=== PATIENT | male | born 1930 | race Caucasian/White ===

== ENCOUNTER 2021-05-12 10:33 | Inpatient (IN) ==
[2021-05-12] MEDS ORDERED: LOSARTAN POTASSIUM 50 MG TAB PO ONE (11:10)
--- NOTE | 2021-05-12 11:43 | XRay Report ---
SINGLE VIEW CHEST CLINICAL HISTORY: Generalized weakness. FINDINGS: An AP, portable, upright chest radiograph is compared to study dated 08/31/2015. A 2-lead c ardiac pacemaker is unchanged in position. The patient is status post midline sternotomy. The heart i s enlarged noting atherosclerotic calcification of the thoracic aorta. The pulmonary vasculature is n oncongested. Chronic interstitial thickening is similar to previous. Atelectasis is noted at the lung bases. No airspace consolidation or large pleural effusion is identified. No pneumothorax is seen. T he bony thorax is grossly intact. A right shoulder arthroplasty is in place. IMPRESSION: 1. Cardiomegaly and cardiac pacemaker. There is no radiographic evidence of congestive failure. 2. No airspace consolidation or pleural effusion is identified. ACT 112: Negative or not required by law. Electronically signed by: Devin Meier M.D. 05/12/2021 11:42 AM
[2021-05-12 11:55] LABS: Appearance Urine Clear (Clear); Bacteria Urine Automated Negative (Negative); Bilirubin Urine Negative (Negative); Blood Urine Negative (Negative); Color Urine Dark Yellow; Glucose Urine UA Negative (Negative); Ketones Urine Trace (Negative); Leukocyte Esterase Urine 2+ (Negative); Nitrite Urine Negative (Negative); Protein Urine Trace (Negative); RBC Urine Automated 0-4 /hpf (0-4); Specific Gravity Urine 1.018 (1.000-1.030); Urobilinogen Urine Negative (Negative)
--- NOTE | 2021-05-12 12:01 | CT Scan Report ---
CT head/brain wo con CLINICAL HISTORY: Acute change in mental status COMPARISON STUDY: No previous studies for comparison. TECHNIQUE: Axial CT of the brain is performed from the vertex to the skull base. IV contrast was not administered for this examination. A dose lowering technique was utilized adhering to the principles of ALARA. CT DOSE: 614.27 mGy.cm FINDINGS: No intra or extra-axial mass lesions are visualized. There is no CT evidence of acute cortical infarc tion. There is no evidence of midline shift. There is no acute hemorrhage. No calvarial fractures ar e visualized. There are patchy white matter hypodensities likely on a small vessel basis. There is no evidence of pathologic ventricular dilatation. No air-fluid levels are visualized. There is maxillary ethmoid sinus mucosal thickening. IMPRESSION: No acute intracranial findings ACT 112: Negative or not required by law. Electronically signed by: Hermann Paige M.D. 05/12/2021 12:00 PM
[2021-05-12 12:02] LABS: Basophils # (auto) 0.06 K/uL (0-0.2); Basophils % (auto) 1.2 %; Eosinophils # (auto) 0.18 K/uL (0-0.5); Eosinophils % (auto) 3.7 %; Hematocrit (blood only) 53.8 % (42-52); Hemoglobin 18.3 g/dL (14.0-18.0); Immature Granulocytes # (auto) 0.02 K/uL (0.00-0.02); Immature Granulocytes % (auto) 0.4 %; Lymphocytes % (auto) 32.5 %; Mean Corpuscular Volume 94.2 fL (80-100); Mean Platelet Volume 10.2 fL (7.4-10.4); Monocytes # (auto) 0.35 K/uL (0.11-0.59); Monocytes % (auto) 7.1 %; Neutrophils # (auto) 2.72 K/uL (1.4-6.5); Neutrophils % (auto) 55.1 %; Platelet Count 234 K/uL (130-400); RDW Coefficient of Variation 13.5 % (11.5-14.5); RDW Standard Deviation 46.5 fL (36.4-46.3); Red Blood Count 5.71 M/uL (4.7-6.1); White Blood Count 4.93 K/uL (4.8-10.8)
[2021-05-12 12:16] LABS: INR 1.1 (0.9-1.1); Partial Thromboplastin Time 26.5 Seconds (21.0-31.0); Prothrombin Time 10.8 Seconds (9.0-12.0)
[2021-05-12 12:20] LABS: Alanine Aminotransferase 36 U/L (12-78); Albumin Level 3.9 gm/dl (3.4-5.0); Aspartate Aminotransferase 24 U/L (15-37); BUN Creatinine Ratio 11.9 (10-20); Blood Urea Nitrogen 11 mg/dl (7-18); Calcium 9.4 mg/dl (8.5-10.1); Carbon Dioxide 30 mmol/L (21-32); Chloride 106 mmol/L (98-107); Creatinine Clr Calc Pharmacy 46.6 ml/min; Est GFR (African American) 87.5 ml/min; Est GFR (Non-African American) 75.5 ml/min; Glucose 93 mg/dl (70-99); Potassium 4.3 mmol/L (3.5-5.1); Sodium 140 mmol/L (136-145)
--- NOTE | 2021-05-12 12:22 | Emergency Department Note ---
Impression & Plan Dementia, Noncompliance with medication regimen, Alcohol use, Oppositional defiant disorder ED Provider Note NAME: SHIRLEY RDZ AGE: 89 SEX: M : 1930 ARRIVES VIA: Law Enforcement Transport INFORMANT: Patient, the police ED PROVIDER(S): Rk Slaughter DO CHIEF COMPLAINT: Mental health HPI: The patient is an 89-year-old male who presented to the emergency department with the police for a 302 evaluation. The patient apparently has had problems with his mental status which was waxing and waning. He does have a history of dementia. At this time the patient denies having any complaints and is quite angry that he is in the emergency department. He denies having any recent trauma. He denies having any head injury. The patient has not been compliant with his medications. He does have some degree of paranoia but he does not admit to this. The patient himself denies having any recent illnesses. He has no fevers or chills. He denies having any dysuria or frequency. He said no headaches. He is not been seen by his primary care physician recently. ROS: See above HPI for pertinent positives & negatives. A total of 10 systems reviewed and were otherwise negative. PAST MEDICAL HISTORY: See Below PAST SURGICAL HISTORY: See Below FAMILY HISTORY: See Below SOCIAL HISTORY: See Below HOME MEDICATIONS: See Below ALLERGIES: See Below VITALS: See Below PHYSICAL EXAMINATION: GENERAL: The patient is awake and alert. The patient is somewhat anxious appearing. EYES: The conjunctivae are clear. The pupils are round and reactive. EARS, NOSE, MOUTH AND THROAT: The nose is without any evidence of any deformity. NECK: The neck is nontender and supple. RESPIRATORY: Normal respiratory effort is noted there is no evidence of wheezing rhonchi or rales CARDIOVASCULAR: Regular rate and rhythm noted there no murmurs rubs or gallops normal S1 normal S2. GASTROINTESTINAL: The abdomen is soft. Abdomen is nontender. MUSCULOSKELETAL/EXTREMITIES: There is no evidence of gross deformity full range of motion is noted in the hips and shoulders. SKIN: There is no obvious evidence of any rash. There are no petechiae, pallor or cyanosis noted. NEUROLOGIC: Patient is awake and alert. He is oriented to person place and situation. He is able to ambulate without difficulty. PSYCH: The patient makes good eye contact for the majority of the conversation. He does have some degree of paranoia. He denies any suicidal homicidal ideation. He admits to having an argument with his significant other. MEDICAL DECISION MAKING: The patient is an 89-year-old male who presented to the emergency department for mental health evaluation. The patient has a history of alcohol use. He also has some dementia symptoms. The patient has been noncompliant with his outpatient medication regimen. He has been very paranoid about using his outpatient medications. He is also not been seeing his primary care physician. The patient was having arguments with his significant other. Apparently the argument became very bad and the patient had the police called on him. The patient was made a 302 and was brought to the emergency department for a mental health evaluation. At this time the patient is awake and alert. He does have some insight into his condition and admits that he does not want to take his medications but appears to be very paranoid about this. The patient was medically cleared in the emergency department. He was given his outpatient hypertensive medication and his blood pressure did improve. The mental health wrapper caser was involved with the patient's care. They interviewed the police. Multiple phone calls were made to area agency on aging and attempts were made to place the patient in a personal nursing home. Ultimately I did not uphold the 302 as I do not feel the patient's condition is best managed in a mental health facility at this time. Triage Nursing notes reviewed. Prior medical records reviewed Vital Signs: reviewed and remarkable for elevated blood pressure. Differential diagnosis: Mood disorder, infection, hypoglycemia, electrolyte abnormalities, cardiac sources, intracerebral event, toxicologic, trauma, neurologic, as well as other pathologies. ER treatment provided: See below Diagnostics interpreted by me: ECG: EKG was obtained in the emergency department. My interpretation is v entricular paced rhythm at 71 bpm. There were no [place] beats appreciated. Peak T waves were noted. This was compared to a tracing from August [id number]. No significant changes were noted. Laboratory studies: As stated above and show below. Imaging studies: See below Consultation(s): 1814: I discussed this case with Janett who is on-call for the [facility] hospitalist group. They have agreed to evaluate the patient in the emergency department for further management and disposition. Past Med/Surg History Medical History CAD (coronary artery disease) CHB (complete heart block) HTN (hypertension) Hyperlipidemia Iron deficiency anemia BASIM (obstructive sleep apnea) Pacemaker SSS (sick sinus syndrome) Surgical History H/O colonoscopy H/O hemorrhoidectomy History of esophagogastroduodenoscopy (EGD) Family History Mother No problems noted. Social History Smoking Status: Never smoker Hx Alcohol Use: Yes Alcohol type: other Hx Substance Use: No Preferred Language: Finnish Beliefs That Will Affect Care: None Current Living Situation: Spouse Feels Safe at Home: Yes Assistive Devices: None Allergies Allergies Allergy/AdvReac Type Severity Reaction Status Date / Time MORRIS Inhibitors AdvReac Unknown COUGH Verified 05/12/21 13:51 Home Meds Home Medications Medication Instructions Recorded Confirmed APIXABAN (ELIQUIS) 5 mg PO BID #0 08/31/15 05/12/21 ASPIRIN (ASPIR-81) 1 tab PO QAM 90 Days #90 tab 08/31/15 05/12/21 CLOTRIMAZOLE W/ BETAMETHASONE 1 dose TOPICAL PRN #0 08/31/15 05/12/21 (CLOTRIMAZOLE/BETAMETHASON) FERROUS GLUCONATE 324 mg PO QAM #0 08/31/15 05/12/21 Multivitamin 1 tab PO QAM #0 tab 08/31/15 05/12/21 acetaminophen 500 mg PO Q6H PRN 09/06/20 05/12/21 betamethasone, augmented 1 applic TOPICAL BID 09/06/20 05/12/21 [Diprolene (augmented)] polyethylene glycol 3350 17 g DAILY PRN 09/06/20 05/12/21 Lipitor 40 mg PO DAILY 05/12/21 05/12/21 losartan-hydrochlorothiazide 100 mg PO DAILY 05/12/21 05/12/21 metformin 500 mg PO DAILY 05/12/21 05/12/21 Results & Data (ED) Vital Signs Vital Signs - 24 hr 05/12/21 10:42 05/12/21 12:37 Temperature 37.1 C Temperature Source Oral Pulse Rate 83 Pulse Rate [Right Finger] 83 65 Pulse Rhythm [Right Finger] Regular Pulse Strength [Right Finger] Normal Respiratory Rate 20 18 Respiratory Effort / Characteristics Non-Labored Spontaneous Non-Labored Spontaneous Respiratory Depth Normal Normal Respiratory Pattern Regular Blood Pressure 193/112 H Blood Pressure [Right Arm] 193/112 H 150/76 H Blood Pressure Mean 139 Blood Pressure Mean [Right Arm] 139 100 Blood Pressure Position [Right Arm] Lying Pulse Oximetry 95 94 Oxygen Delivery Method Room Air Room Air Sepsis Recent Fever Within 48 Hours No Sepsis New/Unexplained Change in Mental Status No Sepsis Action Taken by Nursing No Action Required Home Medications Current Medication List: was personally reviewed by me Laboratory Data Attestation: I reviewed the patient's lab results. Result diagrams: 05/12/21 11:43 05/12/21 11:43 Lab Results 05/12/21 05/12/21 05/12/21 Range/Units 11:20 11:20 11:37 WBC (4.8-10.8) K/uL RBC (4.7-6.1) M/uL Hgb (14.0-18.0) g/dL Hct (42-52) % MCV (80-100) fL MCH (25-34) pg MCHC (32-36) g/dL RDW Std Deviation (36.4-46.3) fL RDW Coeff of Pola (11.5-14.5) % Plt Count (130-400) K/uL MPV (7.4-10.4) fL Immature Gran % (Auto) % Neut % (Auto) % Lymph % (Auto) % Payne % (Auto) % Eos % (Auto) % Baso % (Auto) % Neut # (Auto) (1.4-6.5) K/uL Lymph # (Auto) (1.2-3.4) K/uL Payne # (Auto) (0.11-0.59) K/uL Eos # (Auto) (0-0.5) K/uL Baso # (Auto) (0-0.2) K/uL Immature Gran # (Auto) (0.00-0.02) K/uL PT (9.0-12.0) Seconds INR (0.9-1.1) APTT (21.0-31.0) Seconds PTT Ratio Sodium (136-145) mmol/L Potassium (3.5-5.1) mmol/L Chloride (98-107) mmol/L Carbon Dioxide (21-32) mmol/L Anion Gap (3-11) BUN (7-18) mg/dl Creatinine (0.6-1.4) mg/dl Est Cr Clr Drug Dosing ml/min Est GFR ( Amer) ml/min Est GFR (Non-Af Amer) ml/min BUN/Creatinine Ratio (10-20) Glucose (70-99) mg/dl Calcium (8.5-10.1) mg/dl Magnesium (1.8-2.4) mg/dl Total Bilirubin (0.2-1) mg/dl AST (15-37) U/L ALT (12-78) U/L Alkaline Phosphatase (45-117) U/L Total Creatine Kinase (39-308) U/L Troponin I (0-0.045) ng/ml Total Protein (6.4-8.2) gm/dl Albumin (3.4-5.0) gm/dl Globulin (2.5-4.0) gm/dl Albumin/Globulin Ratio (0.9-2) TSH (0.300-4.500) uIu/ml Urine Color Dark Yellow Urine Appearance Clear (Clear) Urine pH 5.0 (4.5-7.5) Ur Specific Glenn 1.018 (1.000-1.030) Urine Protein Trace H (Negative) Urine Glucose (UA) Negative (Negative) Urine Ketones Trace H (Negative) Urine Blood Negative (Negative) Urine Nitrite Negative (Negative) Urine Bilirubin Negative (Negative) Urine Urobilinogen Negative (Negative) Ur Leukocyte Esterase 2+ H (Negative) Urine WBC (Auto) 5-10 H (0-5) /hpf Urine RBC (Auto) 0-4 (0-4) /hpf U Hyaline Cast (Auto) 5-10 H (0-5) /lpf U Epithel Cells (Auto) 10-20 H (0-5) /lpf Urine Bacteria (Auto) Negative (Negative) Salicylates (2.8-20) mg/dl Urine Opiates Screen Neg (Neg) Ur Methadone, Qual Neg (Neg) Acetaminophen (10-30) ug/ml Urine Barbiturates Neg (Neg) Ur Phencyclidine (PCP) Neg (Neg) U Amphetamin/Meth Scrn Neg (Neg) MDMA (Ecstasy) Screen Neg (Neg) U Benzodiazepines Scrn Neg (Neg) Ur Cocaine Metabolite Neg (Neg) U Marijuana (THC) Screen Neg (Neg) Ethyl Alcohol mg/dL (0-3) mg/dl COVID-19 Eval Order Covid19 at [facility] SARS-CoV-2 (PCR) (Negative) 05/12/21 05/12/21 05/12/21 Range/Units 11:37 11:43 11:43 WBC 4.93 (4.8-10.8) K/uL RBC 5.71 (4.7-6.1) M/uL Hgb 18.3 H (14.0-18.0) g/dL Hct 53.8 H (42-52) % MCV 94.2 (80-100) fL MCH 32.0 (25-34) pg MCHC 34.0 (32-36) g/dL RDW Std Deviation 46.5 H (36.4-46.3) fL RDW Coeff of Pola 13.5 (11.5-14.5) % Plt Count 234 (130-400) K/uL MPV 10.2 (7.4-10.4) fL Immature Gran % (Auto) 0.4 % Neut % (Auto) 55.1 % Lymph % (Auto) 32.5 % Payne % (Auto) 7.1 % Eos % (Auto) 3.7 % Baso % (Auto) 1.2 % Neut # (Auto) 2.72 (1.4-6.5) K/uL Lymph # (Auto) 1.60 (1.2-3.4) K/uL Payne # (Auto) 0.35 (0.11-0.59) K/uL Eos # (Auto) 0.18 (0-0.5) K/uL Baso # (Auto) 0.06 (0-0.2) K/uL Immature Gran # (Auto) 0.02 (0.00-0.02) K/uL PT 10.8 (9.0-12.0) Seconds INR 1.1 (0.9-1.1) APTT 26.5 (21.0-31.0) Seconds PTT Ratio 1.0 Sodium (136-145) mmol/L Potassium (3.5-5.1) mmol/L Chloride (98-107) mmol/L Carbon Dioxide (21-32) mmol/L Anion Gap (3-11) BUN (7-18) mg/dl Creatinine (0.6-1.4) mg/dl Est Cr Clr Drug Dosing ml/min Est GFR ( Amer) ml/min Est GFR (Non-Af Amer) ml/min BUN/Creatinine Ratio (10-20) Glucose (70-99) mg/dl Calcium (8.5-10.1) mg/dl Magnesium (1.8-2.4) mg/dl Total Bilirubin (0.2-1) mg/dl AST (15-37) U/L ALT (12-78) U/L Alkaline Phosphatase (45-117) U/L Total Creatine Kinase (39-308) U/L Troponin I (0-0.045) ng/ml Total Protein (6.4-8.2) gm/dl Albumin (3.4-5.0) gm/dl Globulin (2.5-4.0) gm/dl Albumin/Globulin Ratio (0.9-2) TSH (0.300-4.500) uIu/ml Urine Color Urine Appearance (Clear) Urine pH (4.5-7.5) Ur Specific Glenn (1.000-1.030) Urine Protein (Negative) Urine Glucose (UA) (Negative) Urine Ketones (Negative) Urine Blood (Negative) Urine Nitrite (Negative) Urine Bilirubin (Negative) Urine Urobilinogen (Negative) Ur Leukocyte Esterase (Negative) Urine WBC (Auto) (0-5) /hpf Urine RBC (Auto) (0-4) /hpf U Hyaline Cast (Auto) (0-5) /lpf U Epithel Cells (Auto) (0-5) /lpf Urine Bacteria (Auto) (Negative) Salicylates (2.8-20) mg/dl Urine Opiates Screen (Neg) Ur Methadone, Qual (Neg) Acetaminophen (10-30) ug/ml Urine Barbiturates (Neg) Ur Phencyclidine (PCP) (Neg) U Amphetamin/Meth Scrn (Neg) MDMA (Ecstasy) Screen (Neg) U Benzodiazepines Scrn (Neg) Ur Cocaine Metabolite (Neg) U Marijuana (THC) Screen (Neg) Ethyl Alcohol mg/dL (0-3) mg/dl COVID-19 Eval Order SARS-CoV-2 (PCR) NEGATIVE (Negative) 05/12/21 05/12/21 05/12/21 Range/Units 11:43 11:43 11:43 WBC (4.8-10.8) K/uL RBC (4.7-6.1) M/uL Hgb (14.0-18.0) g/dL Hct (42-52) % MCV (80-100) fL MCH (25-34) pg MCHC (32-36) g/dL RDW Std Deviation (36.4-46.3) fL RDW Coeff of Pola (11.5-14.5) % Plt Count (130-400) K/uL MPV (7.4-10.4) fL Immature Gran % (Auto) % Neut % (Auto) % Lymph % (Auto) % Payne % (Auto) % Eos % (Auto) % Baso % (Auto) % Neut # (Auto) (1.4-6.5) K/uL Lymph # (Auto) (1.2-3.4) K/uL Payne # (Auto) (0.11-0.59) K/uL Eos # (Auto) (0-0.5) K/uL Baso # (Auto) (0-0.2) K/uL Immature Gran # (Auto) (0.00-0.02) K/uL PT (9.0-12.0) Seconds INR (0.9-1.1) APTT (21.0-31.0) Seconds PTT Ratio Sodium 140 (136-145) mmol/L Potassium 4.3 (3.5-5.1) mmol/L Chloride 106 (98-107) mmol/L Carbon Dioxide 30 (21-32) mmol/L Anion Gap 4.0 (3-11) BUN 11 (7-18) mg/dl Creatinine 0.90 (0.6-1.4) mg/dl Est Cr Clr Drug Dosing 46.6 ml/min Est GFR ( Amer) 87.5 ml/min Est GFR (Non-Af Amer) 75.5 ml/min BUN/Creatinine Ratio 11.9 (10-20) Glucose 93 (70-99) mg/dl Calcium 9.4 (8.5-10.1) mg/dl Magnesium 1.6 L (1.8-2.4) mg/dl Total Bilirubin 0.8 (0.2-1) mg/dl AST 24 (15-37) U/L ALT 36 (12-78) U/L Alkaline Phosphatase 53 (45-117) U/L Total Creatine Kinase 38 L (39-308) U/L Troponin I < 0.015 (0-0.045) ng/ml Total Protein 7.3 (6.4-8.2) gm/dl Albumin 3.9 (3.4-5.0) gm/dl Globulin 3.4 (2.5-4.0) gm/dl Albumin/Globulin Ratio 1.1 (0.9-2) TSH 1.600 (0.300-4.500) uIu/ml Urine Color Urine Appearance (Clear) Urine pH (4.5-7.5) Ur Specific Glenn (1.000-1.030) Urine Protein (Negative) Urine Glucose (UA) (Negative) Urine Ketones (Negative) Urine Blood (Negative) Urine Nitrite (Negative) Urine Bilirubin (Negative) Urine Urobilinogen (Negative) Ur Leukocyte Esterase (Negative) Urine WBC (Auto) (0-5) /hpf Urine RBC (Auto) (0-4) /hpf U Hyaline Cast (Auto) (0-5) /lpf U Epithel Cells (Auto) (0-5) /lpf Urine Bacteria (Auto) (Negative) Salicylates < 1.7 L (2.8-20) mg/dl Urine Opiates Screen (Neg) Ur Methadone, Qual (Neg) Acetaminophen < 2 L (10-30) ug/ml Urine Barbiturates (Neg) Ur Phencyclidine (PCP) (Neg) U Amphetamin/Meth Scrn (Neg) MDMA (Ecstasy) Screen (Neg) U Benzodiazepines Scrn (Neg) Ur Cocaine Metabolite (Neg) U Marijuana (THC) Screen (Neg) Ethyl Alcohol mg/dL < 3.0 (0-3) mg/dl COVID-19 Eval Order SARS-CoV-2 (PCR) (Negative) Administered Medications Discontinued Medications Losartan Potassium (Losartan Potassium 50 Mg Tab) 50 mg PO ONE ONE Stop: 05/12/21 11:11 Last Admin: 05/12/21 11:39 Dose: 50 mg Documented by: [id number] Imaging Data Radiologist's Impression: Chest X-Ray 05/12/21 11:09 SINGLE VIEW CHEST CLINICAL HISTORY: Generalized weakness. FINDINGS: An AP, portable, upright chest radiograph is compared to study dated 08/31/2015. A 2-lead cardiac pacemaker is unchanged in position. The patient is status post midline sternotomy. The heart is enlarged noting atherosclerotic calcification of the thoracic aorta. The pulmonary vasculature is noncongested. Chronic interstitial thickening is similar to previous. Atelectasis is noted at the lung bases. No airspace consolidation or large pleural effusion is identified. No pneumothorax is seen. The bony thorax is grossly intact. A right shoulder arthroplasty is in place. IMPRESSION: 1. Cardiomegaly and cardiac pacemaker. There is no radiographic evidence of congestive failure. 2. No airspace consolidation or pleural effusion is identified. ACT 112: Negative or not required by law. Electronically signed by: Devin Meier M.D. 05/12/2021 11:[address] 05/12/21 11:09 CT head/brain wo con CLINICAL HISTORY: Acute change in mental status COMPARISON STUDY: No previous studies for comparison. TECHNIQUE: Axial CT of the brain is performed from the vertex to the skull base. IV contrast was not administered for this examination. A dose lowering technique was utilized adhering to the principles of ALARA. CT DOSE: 614.27 mGy.cm FINDINGS: No intra or extra-axial mass lesions are visualized. There is no CT evidence of acute cortical infarction. There is no evidence of midline shift. There is no acute hemorrhage. No calvarial fractures are visualized. There are patchy white matter hypodensities likely on a small vessel basis. There is no evidence of pathologic ventricular dilatation. No air-fluid levels are visualized. There is maxillary ethmoid sinus mucosal thickening. IMPRESSION: No acute intracranial findings ACT 112: Negative or not required by law. Electronically signed by: Hermann Paige M.D. 05/12/2021 12:00 PM Discharge Plan Visit Data Chief Complaint: Mental Health Evaluation Stated Complaint: [facility] ED Provider: Rk Slaughter Discharge Problem: Dementia, Noncompliance with medication regimen, Alcohol use, Oppositional defiant disorder Forms Stand Alone Forms: Replaced By [facility], Suicide Prevention Resources Prescriptions Prescriptions: No Action APIXABAN (ELIQUIS) 5 MG tablet 5 mg PO BID Qty: 0 RF: 0 ASPIRIN (ASPIR-81) 81 MG tablet 1 tab PO QAM 90 Days Qty: 90 RF: 3 CLOTRIMAZOLE W/ BETAMETHASONE (CLOTRIMAZOLE/BETAMETHASON) 1 LOT LOT 1 dose Topical PRN Qty: 0 RF: 0 FERROUS GLUCONATE 324 MG tablet 324 mg PO QAM Qty: 0 RF: 0 Multivitamin tablet 1 tab PO QAM Qty: 0 RF: 0 polyethylene glycol 3350 17 gram Powder In Packet 17 g DAILY PRN (Reason: Constipation) RF: 0 acetaminophen 500 mg Tablet 500 mg PO Q6H PRN (Reason: Pain) RF: 0 betamethasone, augmented [Diprolene (augmented)] 0.05 % Ointment 1 applic TOPICAL BID RF: 0 Lipitor 1 tab capsule 40 mg PO DAILY RF: 0 metformin 2 tablets tablet 500 mg PO DAILY RF: 0 losartan-hydrochlorothiazide 1 tab tablet 100 mg PO DAILY RF: 0 Referrals Referrals: PCP,NO [Primary Care Provider] - Discharge Problem: Dementia Qualifiers: Dementia type: unspecified type Dementia behavioral disturbance: with behavioral disturbance Qualified Code(s): 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
[2021-05-12 12:30] LABS: Amphetamines+Metham, Urine Neg (Neg); Barbiturates, Urine Neg (Neg); Benzodiazepine, Urine Neg (Neg); Cocaine, Urine Neg (Neg); MDMA (Ecstacy), Urine Neg (Neg); Methadone, Urine Neg (Neg); Opiate, Urine Neg (Neg); Phencyclidine, Urine Neg (Neg)
[2021-05-12 12:31] LABS: Albumin Globulin Ratio 1.1 (0.9-2); Alkaline Phosphatase 53 U/L (45-117); Bilirubin,Total 0.8 mg/dl (0.2-1); Creatine Kinase 38 U/L (39-308); Globulin 3.4 gm/dl (2.5-4.0); Magnesium 1.6 mg/dl (1.8-2.4); Total Protein 7.3 gm/dl (6.4-8.2); Troponin I < 0.015 ng/ml (0-0.045)
[2021-05-12 12:38] LABS: Acetaminophen < 2 ug/ml (10-30); Salicylate < 1.7 mg/dl (2.8-20)
--- NOTE | 2021-05-12 17:34 | Electrocardiogram Report ---
Test Reason : Blood Pressure : / mmHG Vent. Rate : 071 BPM Atrial Rate : 136 BPM P-R Int : 000 ms QRS Dur : 164 ms QT Int : 448 ms P-R-T Axes : 000 268 077 degrees QTc Int : 486 ms Ventricular-paced rhythm Underlying atrial fibrillation Abnormal ECG When compared with ECG of 31-AUG-2015 12:13, Vent. rate has increased BY 4 BPM Confirmed by Dejan Moran ([id number]) on 05/12/2021 5:34:21 PM Referred By: Confirmed By:Dejan Moran
[2021-05-12] MEDS ORDERED: POLYETHYLENE (MIRALAX) 17 GM PACK PO PRN ×2 (21:23)
[2021-05-12] MEDS ORDERED: LORazepam 2 MG/4 ML VIAL IV PRN (21:23)
[2021-05-12] MEDS ORDERED: OLANZapine 10 MG/2.1 ML SDV IM PRN (21:23)
[2021-05-12] MEDS ORDERED: LORazepam 3 MG/6 ML VIAL IV PRN (21:23)
[2021-05-12] MEDS ORDERED: HEPARIN SOD 5,000 UNIT/0.5 ML VIAL SQ SCH (21:23)
[2021-05-12] MEDS ORDERED: NITROGLYCERIN SL 0.4 MG/TAB TAB SL PRN (21:23)
[2021-05-12] MEDS ORDERED: ATIVAN IV ALCOHOL WITHDRAWL IV PRN (21:23)
[2021-05-12] MEDS ORDERED: ONDANSETRON INJ 2 MG/ML 2 ML VIAL IV PRN (21:23)
[2021-05-12] MEDS ORDERED: LORazepam 1 MG/2 ML VIAL IV PRN (21:23)
[2021-05-12] MEDS ORDERED: GABAPENTIN 1200MG ALCOHOL WITHDRAWAL LOAD PO STA (21:23)
[2021-05-12] MEDS ORDERED: cloNIDine HCL 0.1 MG TAB PO PRN (21:23)
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
[2021-05-12] MEDS ORDERED: CLOTRIMAZOLE/BETAMETHASONE CR 15 GM TUBE EXT PRN (21:45)
[2021-05-12] MEDS: INSULIN ASPART 100 UNITS/ML 3 ML PEN SC SCH (21:56)
[2021-05-12] MEDS ORDERED: CARBOHYDRATES FOR HYPOGLYCEMIA PO PRN (22:00)
[2021-05-12] MEDS ORDERED: DEXTROSE 50% 50 ML SYRINGE IV PRN (22:00)
[2021-05-12] MEDS ORDERED: GLUCAGON FOR INJ 1 MG VIAL IM PRN (22:00)
[2021-05-12] MEDS ORDERED: GABAPENTIN 600 MG TAB PO ONE (22:00)
[2021-05-12] MEDS ORDERED: GLUCOSE 40% GEL 15 GM TUBE PO PRN (22:00)
[2021-05-12] MEDS ORDERED: GLUCOSE 10 TABS/TUBE PO PRN (22:00)
[2021-05-12] MEDS: THIAMINE HCL 100 MG in SYRINGE 9 ML IV SCH (22:38)
[2021-05-12] MEDS: FOLIC ACID 1 MG in SYRINGE 9.8 ML IV SCH (22:39)
[2021-05-12] MEDS: APIXABAN 5 MG TABLET PO SCH (22:39)
--- NOTE | 2021-05-12 22:58 | Hospitalist Progress Note ---
Date of Service May 12, 2021 Assessment & Plan Admission and Anticipated Discharge Date Admission Date: May 12, 2021 Subjective possible uti. follow cultures Results & Data Results & Data ([facility]) Vital Signs (Past 12 Hours) Vital Signs Temp Pulse Resp BP BP Pulse Ox Pulse Ox 05/12/21 22:15 36.5 C 65 16 177/108 H 96 05/12/21 21:23 36.5 C 68 16 177/108 H 96 96 05/12/21 20:07 37 C 85 14 167/102 H 93 05/12/21 12:37 65 18 150/76 H 94
[2021-05-13 06:00] LABS: Basophils # (auto) 0.03 K/uL (0-0.2); Basophils % (auto) 0.5 %; Eosinophils # (auto) 0.32 K/uL (0-0.5); Eosinophils % (auto) 5.3 %; Hematocrit (blood only) 48.9 % (42-52); Hemoglobin 17.1 g/dL (14.0-18.0); Immature Granulocytes # (auto) 0.03 K/uL (0.00-0.02); Immature Granulocytes % (auto) 0.5 %; Lymphocytes # (auto) 2.32 K/uL (1.2-3.4); Lymphocytes % (auto) 38.5 %; Mean Corpuscular Hemoglobin 32.6 pg (25-34); Mean Corpuscular Volume 93.1 fL (80-100); Mean Platelet Volume 10.1 fL (7.4-10.4); Monocytes # (auto) 0.55 K/uL (0.11-0.59); Monocytes % (auto) 9.1 %; Neutrophils # (auto) 2.77 K/uL (1.4-6.5); Neutrophils % (auto) 46.1 %; Platelet Count 190 K/uL (130-400); RDW Coefficient of Variation 13.5 % (11.5-14.5); RDW Standard Deviation 46.1 fL (36.4-46.3); Red Blood Count 5.25 M/uL (4.7-6.1); White Blood Count 6.02 K/uL (4.8-10.8)
[2021-05-13] MEDS: GABAPENTIN 600 MG TAB PO SCH ×3 (06:11→20:39)
[2021-05-13 06:20] LABS: Estimated Average Glucose 120 mg/dl; Hemoglobin A1C 5.8 % (4.5-5.6)
[2021-05-13 06:44] LABS: BUN Creatinine Ratio 21.6 (10-20); Calcium 8.9 mg/dl (8.5-10.1); Creatinine Clr Calc Pharmacy 55.8 ml/min; Est GFR (African American) 91.3 ml/min; Est GFR (Non-African American) 78.8 ml/min; Magnesium 1.8 mg/dl (1.8-2.4); Potassium 3.3 mmol/L (3.5-5.1)
[2021-05-13] MEDS: THIAMINE HCL 100 MG in SYRINGE 9 ML IV SCH (08:44)
[2021-05-13] MEDS: MULTIVITAMIN TAB PO SCH (08:44)
[2021-05-13] MEDS: APIXABAN 5 MG TABLET PO SCH ×2 (08:44→20:39)
[2021-05-13] MEDS: ATORVASTATIN 40 MG TAB PO SCH (08:44)
[2021-05-13] MEDS: ASPIRIN 81 MG ECTAB PO SCH (08:44)
[2021-05-13] MEDS: FOLIC ACID 1 MG in SYRINGE 9.8 ML IV SCH (08:44)
[2021-05-13] MEDS: LOSARTAN/HCTZ 50/12.5MG TAB PO SCH (08:45)
[2021-05-13] MEDS: INSULIN ASPART 100 UNITS/ML 3 ML PEN SC SCH ×4 (09:00→21:54)
[2021-05-13] MEDS ORDERED: POTASSIUM CHLORIDE PWD 20 MEQ PACK PO ONE (11:52)
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
[2021-05-14] MEDS: GABAPENTIN 600 MG TAB PO SCH ×3 (05:35→23:34)
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
[2021-05-14] MEDS: THIAMINE HCL 100 MG TAB PO SCH (09:41)
[2021-05-14] MEDS: ISOSORBIDE MONO EXTENDED REL 30 MG TABCR PO SCH (09:41)
[2021-05-14] MEDS: FOLIC ACID 1 MG TAB PO SCH (09:41)
[2021-05-14] MEDS: APIXABAN 5 MG TABLET PO SCH ×2 (09:41→22:15)
[2021-05-14] MEDS: MULTIVITAMIN TAB PO SCH (09:42)
[2021-05-14] MEDS: ASPIRIN 81 MG ECTAB PO SCH (10:39)
[2021-05-14] MEDS: INSULIN ASPART 100 UNITS/ML 3 ML PEN SC SCH (10:39)
[2021-05-14] MEDS: ATORVASTATIN 40 MG TAB PO SCH (10:39)
[2021-05-14] MEDS: FOLIC ACID 1 MG in SYRINGE 9.8 ML IV SCH (10:40)
[2021-05-14] MEDS: LOSARTAN/HCTZ 50/12.5MG TAB PO SCH (10:40)
[2021-05-14] MEDS: THIAMINE HCL 100 MG in SYRINGE 9 ML IV SCH (10:40)
--- NOTE | 2021-05-14 15:49 | Hospitalist Progress Note ---
Date of Service May 14, 2021 Assessment & Plan (1) Alcohol use: Patient was not intoxicated on arrival to the ER, he is a self-described alcoholic. Reports avoiding alcohol for the last couple of weeks. At the age of 89, unsure how helpful rehabilitation will be at this point, however this is an option. For now, there are no withdrawal symptoms but will continue to monitor. (2) Dementia: Alert and oriented, memory is intact from the events of last night and overall. He appears to be very functional. Not on medication at this time. Was recently prescribed mirtazapine 7.5 nightly in April 2021 by his PCP, questionable if he has started this. 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 He has a history of arteriosclerotic dementia. Medication regimen includes aspirin at this time. Patient was notably taken off of atenolol, losartan, HCTZ back in January when he reported noncompliance with this. His PCP is aware of noncompliance. Patient has no chest pain and appears stable at this time. (4) Chronic atrial fibrillation: Recently seen by PCP. Strongly advised to stay on meds including anticoagulant. Currently taking aspirin, Eliquis. Not on other rate or rhythm control medications. (5) Noncompliance with medication regimen: Reports recent noncompliance with medications. (6) Hypertension: Patient has stopped losartan HCTZ earlier this year and is on diet control only. Continue low-salt diet. (7) DVT prophylaxis: Apixaban Full code Disposition -considering placement into [facility]. For now awaiting a receiving facility for this elderly man with dementia. Sylvia Regalado DO [facility] Hospitalist Admission and Anticipated Discharge Date Admission Date: May 12, 2021 Subjective 89 yo M with alcoholism and dementia presented to the ER after an argument with his . He cannot return home as she has a restraining order on him. He wants to go to his trailer in [place]. He is not agitated or withdrawing. He is oriented and doing well overall. Review of Systems Review of Systems: All systems reviewed & are unremarkable except as noted in Subjective Physical Exam Physical Exam: CONSTITUTIONAL: WNWD, vitals as above, generally well- appearing EYES: normal conjunctivae, no scleral icterus ENT: external ear and nose normal, MMM RESPIRATORY: clear to auscultation bilaterally, no crackles, rales or wheezes, normal respiratory effort CARDIOVASCULAR: regular rate and rhythm, S1 and 2 heard without murmurs, arnold ps or rubs, no JVD, no peripheral edema GASTROINTESTINAL: soft, nontender, nondistended MUSCULOSKELETAL: strength 5/5 throughout, head is normocephalic and atraumatic SKIN: warm and dry NEUROLOGIC: CN 2-12 grossly intact, no sensory deficit, normal cognition, normal speech, no tremor, no gross focal deficits. PSYCHIATRIC: alert cooperative and oriented to person, place and time. Results & Data Results & Data ([facility]) Vital Signs (Past 12 Hours) Vital Signs Temp Pulse Pulse Resp BP BP Pulse Ox 05/14/21 09:39 59 L 125/77 05/14/21 07:46 36.5 C 62 20 136/90 95 05/14/21 07:00 60 05/14/21 04:00 36.6 C 68 20 143/90 H 95 Medications Administered Current Inpatient Medications Acetaminophen (Acetaminophen 325 Mg Tab) 650 mg PO Q4H PRN PRN Reason: Pain or Fever Stop: 06/11/21 21:22 Apixaban (Apixaban 5 Mg Tablet) 5 mg PO BID [facility] Stop: 06/11/21 21:59 Last Admin: 05/14/21 09:41 Dose: 5 mg Documented by: Betamethasone/Clotrimazole (Clotrimazole/Betamethasone Cr 15 Gm Tube) 1 appln EXT PRN PRN PRN Reason: PRN Stop: 06/11/21 21:44 Folic Acid (Folic Acid 1 Mg Tab) 1 mg PO QAM [facility] Stop: 06/13/21 09:29 Last Admin: 05/14/21 09:41 Dose: 1 mg Documented by: Gabapentin (Gabapentin 600 Mg Tab) 600 mg PO Q12H [facility] Stop: 05/15/21 12:01 Gabapentin (Gabapentin 600 Mg Tab) 600 mg PO Q24H [facility] Stop: 05/16/21 12:01 Lorazepam (Ativan) 1 mg in 2 mls @ 2 mls/min IV UD PRN; Protocol PRN Reason: EtOH Withdrawl AWSS Score 6,7 Stop: 06/11/21 21:22 Lorazepam (Ativan) 2 mg in 4 mls @ 4 mls/min IV UD PRN; Protocol PRN Reason: EtOH Withdrawl AWSS Score 8,9 Stop: 06/11/21 21:22 Lorazepam (Ativan) 3 mg in 6 mls @ 4 mls/min IV ONCE PRN; Protocol PRN Reason: EtOH Withdrawl AWSS Score >=10 Stop: 06/11/21 21:22 Isosorbide Mononitrate (Isosorbide [place] Extended Rel 30 Mg Tabcr) [facility] [place] Stop: 06/13/21 09:29 Last Admin: 05/14/21 09:41 Dose: 30 mg Documented by: Multivitamins (Multivitamin Tab) 1 tab [facility] [place] Stop: 06/12/21 08:59 Last Admin: 05/14/21 09:42 Dose: 1 tab Documented by: Nitroglycerin (Nitroglycerin Sl 0.4 Mg/Tab Tab) 0.4 mg SL UD PRN PRN Reason: Chest Pain Stop: 06/11/21 21:22 Olanzapine (Olanzapine 10 Mg/2.1 Ml Sdv) 2.5 mg IM Q4H PRN PRN Reason: Agitation Stop: 06/11/21 21:22 Ondansetron HCl (Ondansetron Inj 2 Mg/Ml 2 Ml Vial) 4 mg IV Q6H PRN PRN Reason: Nausea Stop: 06/11/21 21:22 Polyethylene Glycol (Polyethylene (Miralax) 17 Gm Pack) 17 gm PO DAILY PRN PRN Reason: Constipation Stop: 06/11/21 21:22 Thiamine HCl (Thiamine Hcl 100 Mg Tab) 100 [facility] [place] Stop: 06/13/21 09:29 Last Admin: 05/14/21 09:41 Dose: 100 mg Documented by: (1) Dementia Dementia behavioral disturbance: with behavioral disturbance Dementia type: unspecified type Qualified Code(s): F03.91 - Unspecified dementia with behavio ral disturbance
[2021-05-15] MEDS: MULTIVITAMIN TAB PO SCH (08:04)
[2021-05-15] MEDS: FOLIC ACID 1 MG TAB PO SCH (08:04)
[2021-05-15] MEDS: ISOSORBIDE MONO EXTENDED REL 30 MG TABCR PO SCH (08:04)
[2021-05-15] MEDS: APIXABAN 5 MG TABLET PO SCH ×2 (08:04→22:22)
[2021-05-15] MEDS: THIAMINE HCL 100 MG TAB PO SCH (08:04)
[2021-05-15 10:52] LABS: BUN Creatinine Ratio 13.6 (10-20); Calcium 8.9 mg/dl (8.5-10.1); Creatinine Clr Calc Pharmacy 42.2 ml/min; Est GFR (Non-African American) 61.2 ml/min
[2021-05-15] MEDS: GABAPENTIN 600 MG TAB PO SCH (12:50)
--- NOTE | 2021-05-15 18:07 | Hospitalist Progress Note ---
Date of Service May 15, 2021 Assessment & Plan (1) Alcohol use: Patient was not intoxicated on arrival to the ER, he is a self-described alcoholic. Reports avoiding alcohol for the last couple of weeks. At the age of 89, unsure how helpful rehabilitation will be at this point, however this is an option. For now, there are no withdrawal symptoms but will continue to monitor. (2) Dementia: Alert and oriented, memory is intact from the events of last night and overall. He appears to be very functional. Not on medication at this time. Was recently prescribed mirtazapine 7.5 nightly in April 2021 by his PCP, questionable if he has started this. 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 He has a history of arteriosclerotic dementia. Medication regimen includes aspirin at this time. Patient was notably taken off of atenolol, losartan, HCTZ back in January when he reported noncompliance with this. His PCP is aware of noncompliance. Patient has no chest pain and appears stable at this time. (4) Chronic atrial fibrillation: Recently seen by PCP. Strongly advised to stay on meds including anticoagulant. Currently taking aspirin, Eliquis. Not on other rate or rhythm control medications. (5) Noncompliance with medication regimen: Reports recent noncompliance with medications. (6) Hypertension: Patient has stopped losartan HCTZ earlier this year and is on diet control only. Continue low-salt diet. (7) DVT prophylaxis: Apixaban Full code Disposition -considering placement into [facility]. For now awaiting a receiving facility for this elderly man with dementia. Sylvia Regalado DO [facility] Hospitalist Admission and Anticipated Discharge Date Admission Date: May 12, 2021 Subjective 89 yo M with alcoholism and dementia presented to the ER after an argument with his . He cannot return home as she has a restraining order on him. He feels well overall denying any symptoms at this time. Review of Systems Review of Systems: All systems reviewed & are unremarkable except as noted in Subjective Physical Exam Physical Exam: CONSTITUTIONAL: WNWD, vitals as above, generally well- appearing EYES: normal conjunctivae, no scleral icterus ENT: external ear and nose normal, MMM RESPIRATORY: clear to auscultation bilaterally, no crackles, rales or wheezes, normal respiratory effort CARDIOVASCULAR: regular rate and rhythm, S1 and 2 heard without murmurs, gallops or rubs, no JVD, no peripheral edema GASTROINTESTINAL: soft, nontender, nondistended MUSCULOSKELETAL: strength 5/5 throughout, head is normocephalic and atraumatic SKIN: warm and dry NEUROLOGIC: CN 2-12 grossly intact, no sensory deficit, normal cognition, normal speech, no tremor, no gross focal deficits. PSYCHIATRIC: alert cooperative and oriented to person, place and time. Results & Data Results & Data ([facility]) Vital Signs (Past 12 Hours) Vital Signs Temp Pulse Pulse Resp BP BP Pulse Ox 05/15/21 16:00 36.5 C 72 18 134/79 96 05/15/21 13:05 36.5 C 63 16 116/65 95 05/15/21 07:18 36.5 C 59 L 18 125/84 92 Laboratory Results [facility] 05/15/21 10:05 Sodium 142 Potassium 4.0 Chloride 106 Carbon Dioxide 30 BUN 15 Creatinine 1.07 Glucose 86 Calcium 8.9 Medications Administered Current Inpatient Medications Acetaminophen (Acetaminophen 325 Mg Tab) 650 mg PO Q4H PRN PRN Reason: Pain or Fever Stop: 06/11/21 21:22 Apixaban (Apixaban 5 Mg Tablet) 5 mg PO BID [facility] Stop: 06/11/21 21:59 Last Admin: 05/15/21 08:04 Dose: 5 mg Documented by: Betamethasone/Clotrimazole (Clotrimazole/Betamethasone Cr 15 Gm Tube) 1 appln EXT PRN PRN PRN Reason: PRN Stop: 06/11/21 21:44 Folic Acid (Folic Acid 1 Mg Tab) 1 mg PO QAM [facility] Stop: 06/13/21 09:29 Last Admin: 05/15/21 08:04 Dose: 1 mg Documented by: Gabapentin (Gabapentin 600 Mg Tab) 600 mg PO Q24H [facility] Stop: 05/16/21 12:01 Lorazepam (Ativan) 1 mg in 2 mls @ 2 mls/min IV UD PRN; Protocol PRN Reason: EtOH Withdrawl AWSS Score 6,7 Stop: 06/11/21 21:22 Lorazepam (Ativan) 2 mg in 4 mls @ 4 mls/min IV UD PRN; Protocol PRN Reason: EtOH Withdrawl AWSS Score 8,9 Stop: 06/11/21 21:22 Lorazepam (Ativan) 3 mg in 6 mls @ 4 mls/min IV ONCE PRN; Protocol PRN Reason: EtOH Withdrawl AWSS Score >=10 Stop: 06/11/21 21:22 Isosorbide Mononitrate (Isosorbide [place] Extended Rel 30 Mg Tabcr) 30 mg PO [facility] Stop: 06/13/21 09:29 Last Admin: 05/15/21 08:04 Dose: 30 mg Documented by: Multivitamins (Multivitamin Tab) 1 tab PO [facility] Stop: 06/12/21 08:59 Last Admin: 05/15/21 08:04 Dose: 1 tab Documented by: Nitroglycerin (Nitroglycerin Sl 0.4 Mg/Tab Tab) 0.4 mg SL UD PRN PRN Reason: Chest Pain Stop: 06/11/21 21:22 Olanzapine (Olanzapine 10 Mg/2.1 Ml Sdv) 2.5 mg IM Q4H PRN PRN Reason: Agitation Stop: 06/11/21 21:22 Ondansetron HCl (Ondansetron Inj 2 Mg/Ml 2 Ml Vial) 4 mg IV Q6H PRN PRN Reason: Nausea Stop: 06/11/21 21:22 Polyethylene Glycol (Polyethylene (Miralax) 17 Gm Pack) 17 gm PO DAILY PRN PRN Reason: Constipation Stop: 06/11/21 21:22 Thiamine HCl (Thiamine Hcl 100 Mg Tab) 100 mg PO [facility] Stop: 06/13/21 09:29 Last Admin: 05/15/21 08:04 Dose: 100 mg Documented by: (1) Dementia Dementia behavioral disturbance: with behavioral disturbance Dementia type: unspecified type Qualified Code(s): 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
[2021-05-16] MEDS: ISOSORBIDE MONO EXTENDED REL 30 MG TABCR PO SCH (09:05)
[2021-05-16] MEDS: APIXABAN 5 MG TABLET PO SCH ×2 (09:06→19:54)
[2021-05-16] MEDS: FOLIC ACID 1 MG TAB PO SCH (09:06)
[2021-05-16] MEDS: THIAMINE HCL 100 MG TAB PO SCH (09:06)
[2021-05-16] MEDS: MULTIVITAMIN TAB PO SCH (09:06)
[2021-05-16] MEDS ORDERED: GABAPENTIN 600 MG TAB PO SCH (12:00)
--- NOTE | 2021-05-16 14:13 | Hospitalist Progress Note ---
Date of Service May 16, 2021 Assessment & Plan (1) Dementia: Was brought into ER following an argument with the at home and initially thought to have 302 admission 302 petition was dropped as the patient improved subsequently Appreciate psychiatric input and recommendation Alert and oriented, memory is intact from the events of last night and overall. He appears to be very functional. Not on medication at this time. Was recently prescribed mirtazapine 7.5 nightly in April 2021 by his PCP, questionable if he has started this. will not start Mirtazapine as Psychiatrist did not recommended any meds He remains otherwise stable (2) Noncompliance with medication regimen: Reports recent noncompliance with medications. (3) Alcohol use: Patient was not intoxicated on arrival to the ER, he is a self-described alcoholic. Reports avoiding alcohol for the last couple of weeks. At the age of 89, unsure how helpful rehabilitation will be at this point, however this is an option. For now, there are no withdrawal symptoms but will continue to monitor. 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 He has a history of arteriosclerotic dementia. Medication regimen includes aspirin at this time. Patient was notably taken off of atenolol, losartan, HCTZ back in January when he reported noncompliance with this. His PCP is aware of noncompliance. Patient has no chest pain and appears stable at this time. (5) Chronic atrial fibrillation: Recently seen by PCP. Strongly advised to stay on meds including anticoagulant. Currently taking aspirin, Eliquis. Not on other rate or rhythm control medications. (6) Hypertension: Patient has stopped losartan HCTZ earlier this year and is on diet control only. Continue low-salt diet. Will start Amlodipine 2.5 Mg daily (7) DVT prophylaxis: Apixaban Full code Disposition -considering placement into [facility]. For now awaiting a receiving facility for this elderly man with dementia. Admission and Anticipated Discharge Date Admission Date: May 12, 2021 Subjective 05/16/2021 The patient was seen and examined in medical floor He was admitted following an argument with his at home but the 302 criteria has been dropped He denies any symptoms as of today and has been feeling a lot better He has been waiting to be placed Review of Systems Review of Systems: All systems reviewed and are unremarkable except as noted below Neurologic: + generalized weakness Physical Exam Physical Exam: Sitting on a chair without any acute distress Constitutional: well developed and well nourished; not ill appearing Eyes: PERRL, conjunctivae normal, anicteric sclerae ENMT: external ear and nose normal, oropharynx normal Neck: trachea midline, no thyromegaly Respiratory: no respiratory distress Auscultation: lungs clear to ausc ultation bilaterally Cardiovascular: Rate/Rhythm: regular rate and regular rhythm Heart Sounds: no murmur Extremities: no edema Gastrointestinal (Abdomen): Inspection/Auscultation: normal bowel sounds; abdomen not distended Percussion/Palpation: abdomen soft; abdomen nontender Musculoskeletal: No acute arthritis in any joint Neurologic: Alert, awake and oriented x3. Generally weak but no focal sensory or motor deficit appreciated Psychiatric: A+Ox3, euthymic affect Lymphatic: no cervical or axillary lymphadenopathy Results & Data Results & Data ([facility]) Vital Signs (Past 12 Hours) Vital Signs Temp Pulse Resp BP Pulse Ox 05/16/21 07:30 36.4 C L 75 20 169/98 H 95 Medications Administered Current Inpatient Medications Acetaminophen (Acetaminophen 325 Mg Tab) 650 mg PO Q4H PRN PRN Reason: Pain or Fever Stop: 06/11/21 21:22 Apixaban (Apixaban 5 Mg Tablet) 5 mg PO BID [facility] Stop: 06/11/21 21:59 Last Admin: 05/16/21 09:06 Dose: 5 mg Documented by: Betamethasone/Clotrimazole (Clotrimazole/Betamethasone Cr 15 Gm Tube) 1 appln EXT PRN PRN PRN Reason: PRN Stop: 06/11/21 21:44 Folic Acid (Folic Acid 1 Mg Tab) 1 mg PO QAM [facility] Stop: 06/13/21 09:29 Last Admin: 05/16/21 09:06 Dose: 1 mg Documented by: Lorazepam (Ativan) 1 mg in 2 mls @ 2 mls/min IV UD PRN; Protocol PRN Reason: EtOH Withdrawl AWSS Score 6,7 Stop: 06/11/21 21:22 Lorazepam (Ativan) 2 mg in 4 mls @ 4 mls/min IV UD PRN; Protocol PRN Reason: EtOH Withdrawl AWSS Score 8,9 Stop: 06/11/21 21:22 Lorazepam (Ativan) 3 mg in 6 mls @ 4 mls/min IV ONCE PRN; Protocol PRN Reason: EtOH Withdrawl AWSS Score >=10 Stop: 06/11/21 21:22 Isosorbide Mononitrate (Isosorbide [place] Extended Rel 30 Mg Tabcr) 30 mg PO [facility] Stop: 06/13/21 09:29 Last Admin: 05/16/21 09:05 Dose: 30 mg Documented by: Multivitamins (Multivitamin Tab) 1 tab PO [facility] Stop: 06/12/21 08:59 Last Admin: 05/16/21 09:06 Dose: 1 tab Documented by: Nitroglycerin (Nitroglycerin Sl 0.4 Mg/Tab Tab) 0.4 mg SL UD PRN PRN Reason: Chest Pain Stop: 06/11/21 21:22 Olanzapine (Olanzapine 10 Mg/2.1 Ml Sdv) 2.5 mg IM Q4H PRN PRN Reason: Agitation Stop: 06/11/21 21:22 Ondansetron HCl (Ondansetron Inj 2 Mg/Ml 2 Ml Vial) 4 mg IV Q6H PRN PRN Reason: Nausea Stop: 06/11/21 21:22 Polyethylene Glycol (Polyethylene (Miralax) 17 Gm Pack) 17 gm PO DAILY PRN PRN Reason: Constipation Stop: 06/11/21 21:22 Thiamine HCl (Thiamine Hcl 100 Mg Tab) 100 mg PO [facility] Stop: 06/13/21 09:29 Last Admin: 05/16/21 09:06 Dose: 100 mg Documented by: (1) Dementia Dementia behavioral disturbance: with behavioral disturbance Dementia type: unspecified type Qualified Code(s): 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
[2021-05-16] MEDS: amLODIPine BESYLATE 5 MG TAB PO SCH (15:08)
[2021-05-17] MEDS: amLODIPine BESYLATE 5 MG TAB PO SCH (08:05)
[2021-05-17] MEDS: APIXABAN 5 MG TABLET PO SCH ×2 (08:05→20:02)
[2021-05-17] MEDS: MULTIVITAMIN TAB PO SCH (08:06)
[2021-05-17] MEDS: ISOSORBIDE MONO EXTENDED REL 30 MG TABCR PO SCH (08:06)
[2021-05-17] MEDS: THIAMINE HCL 100 MG TAB PO SCH (08:06)
[2021-05-17] MEDS: FOLIC ACID 1 MG TAB PO SCH (08:07)
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
--- NOTE | 2021-05-17 16:50 | Hospitalist Progress Note ---
Date of Service May 17, 2021 Assessment & Plan (1) Dementia: Was brought into ER following an argument with the at home and initially thought to have 302 admission 302 petition was dropped as the patient improved subsequently Appreciate psychiatric input and recommendation Alert and oriented, memory is intact from the events of last night and overall. He appears to be very functional. Not on medication at this time. Was recently prescribed mirtazapine 7.5 nightly in April 2021 by his PCP, questionable if he has started this. will not start Mirtazapine as Psychiatrist did not recommended any meds Remains stable without any acute delirium Awaiting to be placed (2) Noncompliance with medication regimen: Reports recent noncompliance with medications. (3) Alcohol use: Patient was not intoxicated on arrival to the ER, he is a self-described alcoholic. Reports avoiding alcohol for the last couple of weeks. At the age of 89, unsure how helpful rehabilitation will be at this point, [facility] this is an option. For now, there are no withdrawal symptoms but will continue to monitor. 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 Medication regimen includes aspirin at this time. Patient was notably taken off of atenolol, losartan, HCTZ back in January when he reported noncompliance with this. His PCP is aware of noncompliance. Patient has no chest pain and appears stable at this time. (5) Chronic atrial fibrillation: Recently seen by PCP. Strongly advised to stay on meds including anticoagulant. Currently taking aspirin, Eliquis. Not on other rate or rhythm control medications. No acute cardiac symptoms (6) Hypertension: Patient has stopped losartan HCTZ earlier this year and is on diet control only. Continue low-salt diet. Will start Amlodipine 2.5 Mg daily (7) DVT prophylaxis: Apixaban Full code Disposition -considering placement into [facility]. For now awaiting a receiving facility for this elderly man with dementia. Admission and Anticipated Discharge Date Admission Date: May 12, 2021 Subjective 05/16/2021 The patient was seen and examined in medical floor He was admitted following an argument with his at home but the 302 criteria has been dropped He denies any symptoms as of today and has been feeling a lot better He has been waiting to be placed 05/17/2021 The patient was seen and examined in medical floor He has been much better today He discussed in detail what happened to him before coming to the hospital He seemed quite rational in his thought and behavior Review of Systems Review of Systems: All systems reviewed and are unremarkable except as noted below Neurologic: + generalized weakness Physical Exam Physical Exam: Sitting on a chair without any acute distress Constitutional: well developed and well nourished; not ill appearing Eyes: PERRL, conjunctivae normal, anicteric sclerae ENMT: external ear and nose normal, oropharynx normal Neck: trachea midline, no thyromegaly Respiratory: no respiratory distress Auscultation: lungs clear to auscultation bilaterally Cardiovascular: Rate/Rhythm: regular rate and regular rhythm Heart Sounds: no murmur Extremities: no edema Gastrointestinal (Abdomen): Inspection/Auscultation: normal bowel sounds; abdomen not distended Percussion/Palpation: abdomen soft; abdomen nontender Musculoskeletal: No acute arthritis in any joint Psychiatric: A+Ox3, euthymic affect Lymphatic: no cervical or axillary lymphadenopathy Results & Data Results & Data ([facility]) Vital Signs (Past 12 Hours) Vital Signs Temp Pulse Resp BP BP Pulse Ox 05/17/21 16:00 36.4 C L 60 20 131/78 96 05/17/21 07:30 36.8 C 61 18 149/81 H 98 Medications Administered Current Inpatient Medications Acetaminophen (Acetaminophen 325 Mg Tab) 650 mg PO Q4H PRN PRN Reason: Pain or Fever Stop: 06/11/21 21:22 Amlodipine Besylate (Amlodipine Besylate 5 Mg Tab) 2.5 mg PO QAM [facility] Stop: 06/15/21 14:29 Last Admin: 05/17/21 08:05 Dose: 2.5 mg Documented by: Apixaban (Apixaban 5 Mg Tablet) 5 mg PO BID [facility] Stop: 06/11/21 21:59 Last Admin: 05/17/21 08:05 Dose: 5 mg Documented by: Betamethasone/Clotrimazole (Clotrimazole/Betamethasone Cr 15 Gm Tube) 1 appln EXT PRN PRN PRN Reason: PRN Stop: 06/11/21 21:44 Folic Acid (Folic Acid 1 Mg Tab) 1 mg PO QAM [facility] Stop: 06/13/21 09:29 Last Admin: 05/17/21 08:07 Dose: 1 mg Documented by: Lorazepam (Ativan) 1 mg in 2 mls @ 2 mls/min IV UD PRN; Protocol PRN Reason: EtOH Withdrawl AWSS Score 6,7 Stop: 06/11/21 21:22 Lorazepam (Ativan) 2 mg in 4 mls @ 4 mls/min IV UD PRN; Protocol PRN Reason: EtOH Withdrawl AWSS Score 8,9 Stop: 06/11/21 21:22 Lorazepam (Ativan) 3 mg in 6 mls @ 4 mls/min IV ONCE PRN; Protocol PRN Reason: EtOH Withdrawl AWSS Score >=10 Stop: 06/11/21 21:22 Isosorbide Mononitrate (Isosorbide [place] Extended Rel 30 Mg Tabcr) 30 mg PO [facility] Stop: 06/13/21 09:29 Last Admin: 05/17/21 08:06 Dose: 30 mg Documented by: Multivitamins (Multivitamin Tab) 1 tab PO [facility] Stop: 06/12/21 08:59 Last Admin: 05/17/21 08:06 Dose: 1 tab Documented by: Nitroglycerin (Nitroglycerin Sl 0.4 Mg/Tab Tab) 0.4 mg SL UD PRN PRN Reason: Chest Pain Stop: 06/11/21 21:22 Olanzapine (Olanzapine 10 Mg/2.1 Ml Sdv) 2.5 mg IM Q4H PRN PRN Reason: Agitation Stop: 06/11/21 21:22 Ondansetron HCl (Ondansetron Inj 2 Mg/Ml 2 Ml Vial) 4 mg IV Q6H PRN PRN Reason: Nausea Stop: 06/11/21 21:22 Polyethylene Glycol (Polyethylene (Miralax) 17 Gm Pack) 17 gm PO DAILY PRN PRN Reason: Constipation Stop: 06/11/21 21:22 Thiamine HCl (Thiamine Hcl 100 Mg Tab) 100 mg PO [facility] Stop: 06/13/21 09:29 Last Admin: 05/17/21 08:06 Dose: 100 mg Documented by: (1) Dementia Dementia behavioral disturbance: with behavioral disturbance Dementia type: unspecified type Qualified Code(s): 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
[2021-05-17] MEDS: ACETAMINOPHEN 325 MG TAB PO PRN (19:49)
[2021-05-18] MEDS: THIAMINE HCL 100 MG TAB PO SCH (07:25)
[2021-05-18] MEDS: amLODIPine BESYLATE 5 MG TAB PO SCH (07:25)
[2021-05-18] MEDS: ISOSORBIDE MONO EXTENDED REL 30 MG TABCR PO SCH (07:25)
[2021-05-18] MEDS: MULTIVITAMIN TAB PO SCH (07:26)
[2021-05-18] MEDS: APIXABAN 5 MG TABLET PO SCH ×2 (07:26→20:15)
[2021-05-18] MEDS: FOLIC ACID 1 MG TAB PO SCH (07:26)
--- NOTE | 2021-05-18 14:45 | Hospitalist Progress Note ---
Date of Service May 18, 2021 Assessment & Plan (1) Dementia: Was brought into ER following an argument with the at home and initially thought to have 302 admission 302 petition was dropped as the patient improved subsequently Appreciate psychiatric input and recommendation Alert and oriented, memory is intact from the events of last night and overall. He appears to be very functional. Not on medication at this time. Was recently prescribed mirtazapine 7.5 nightly in April 2021 by his PCP, questionable if he has started this. will not start Mirtazapine as Psychiatrist did not recommended any meds Remains stable without any acute delirium Awaiting to be placed (2) Noncompliance with medication regimen: Reports recent noncompliance with medications. (3) Alcohol use: Patient was not intoxicated on arrival to the ER, he is a self-described alcoholic. Reports avoiding alcohol for the last couple of weeks. At the age of 89, unsure how helpful rehabilitation will be at this point, [facility] this is an option. For now, there are no withdrawal symptoms but will continue to monitor. 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 Medication regimen includes aspirin at this time. Patient was notably taken off of atenolol, losartan, HCTZ back in January when he reported noncompliance with this. His PCP is aware of noncompliance. Patient has no chest pain and appears stable at this time. (5) Chronic atrial fibrillation: Recently seen by PCP. Strongly advised to stay on meds including anticoagulant. Currently taking aspirin, Eliquis. Not on other rate or rhythm control medications. No acute cardiac symptoms (6) Hypertension: Patient has stopped losartan HCTZ earlier this year and is on diet control only. Continue low-salt diet. Will start Amlodipine 2.5 Mg daily (7) DVT prophylaxis: Apixaban Full code Disposition -[facility]ing [facility]. For now awaiting a receiving facility for this elderly man with dementia. Admission and Anticipated Discharge Date Admission Date: May 12, 2021 Subjective 05/16/2021 The patient was seen and examined in medical floor He was admitted following an argument with his at home but the 302 criteria has been dropped He denies any symptoms as of today and has been feeling a lot better He has been waiting to be placed 05/17/2021 The patient was seen and examined in medical floor He has been much better today He discussed in detail what happened to him before coming to the hospital He seemed quite rational in his thought and behavior 05/18/2021 The patient was seen and examined in medical floor Even before restarting conversation with him he mentioned that he has dementia and is not a good day for him to talk The exam section is from 05/17/2021 Review of Systems Review of Systems: All systems reviewed and are unremarkable except as noted below Neurologic: + generalized weakness Physical Exam Physical Exam: Sitting on a chair without any acute distress Constitutional: well developed and well nourished; not ill appearing Eyes: PERRL, conjunctivae normal, anicteric sclerae ENMT: external ear and nose normal, oropharynx normal Neck: trachea midline, no thyromegaly Respiratory: no respiratory distress Auscultation: lungs clear to auscultation bilaterally Cardiovascular: Rate/Rhythm: regular rate and regular rhythm Heart Sounds: no murmur Extremities: no edema Gastrointestinal (Abdomen): Inspection/Auscultation: normal bowel sounds; abdomen not distended Percussion/Palpation: abdomen soft; abdomen nontender Psychiatric: A+Ox3, euthymic affect Lymphatic: no cervical or axillary lymphadenopathy Results & Data Results & Data (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
[2021-05-18] MEDS: ACETAMINOPHEN 325 MG TAB PO PRN (21:07)
[2021-05-19] MEDS: THIAMINE HCL 100 MG TAB PO SCH (07:59)
[2021-05-19] MEDS: ISOSORBIDE MONO EXTENDED REL 30 MG TABCR PO SCH (07:59)
[2021-05-19] MEDS: MULTIVITAMIN TAB PO SCH (08:00)
[2021-05-19] MEDS: APIXABAN 5 MG TABLET PO SCH ×2 (08:00→20:48)
[2021-05-19] MEDS: amLODIPine BESYLATE 5 MG TAB PO SCH (08:00)
[2021-05-19] MEDS: FOLIC ACID 1 MG TAB PO SCH (08:00)
--- NOTE | 2021-05-19 14:54 | Communication Note ---
Date of Service: May 19, 2021 Patient continues without significant psychiatric symptoms. No psychiatric treatment warranted or given at this time. Psychiatric consult team signing off, please reconsult if necessary.
--- NOTE | 2021-05-19 17:03 | Hospitalist Progress Note ---
Date of Service May 19, 2021 Assessment & Plan (1) Dementia: Was brought into ER following an argument with the at home and initially thought to have 302 admission 302 petition was dropped as the patient improved subsequently Appreciate psychiatric input and recommendation Alert and oriented, memory is intact from the events of last night and overall. He appears to be very functional. Not on medication at this time. Was recently prescribed mirtazapine 7.5 nightly in April 2021 by his PCP, questionable if he has started this. will not start Mirtazapine as Psychiatrist did not recommended any meds Remains stable without any acute delirium Awaiting to be placed Will be transferred out of the hospital on Saturday (2) Noncompliance with medication regimen: Reports recent noncompliance with medications. Has been taking his medications regularly (3) Alcohol use: Patient was not intoxicated on arrival to the ER, he is a self-described alcoholic. Reports avoiding alcohol for the last couple of weeks. At the age of 89, unsure how helpful rehabilitation will be at this point, however this is an option. For now, there are no withdrawal symptoms but will continue to monitor. 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 Medication regimen includes aspirin at this time. Patient was notably taken off of atenolol, losartan, HCTZ back in January when he reported noncompliance with this. His PCP is aware of noncompliance. Patient has no chest pain and appears stable at this time. Remains stable without any symptoms (5) Chronic atrial fibrillation: Recently seen by PCP. Strongly advised to stay on meds including anticoagulant. Currently taking aspirin, Eliquis. Not on other rate or rhythm control medications. No acute cardiac symptoms (6) Hypertension: Patient has stopped losartan HCTZ earlier this year and is on diet control only. Continue low-salt diet. Will start Amlodipine 2.5 Mg daily (7) DVT prophylaxis: Apixaban Full code Disposition -considering placement into [facility]. For now awaiting a receiving facility for this elderly man with dementia. Admission and Anticipated Discharge Date Admission Date: May 12, 2021 Subjective 05/16/2021 The patient was seen and examined in medical floor He was admitted following an argument with his at home but the 302 criteria has been dropped He denies any symptoms as of today and has been feeling a lot better He has been waiting to be placed 05/17/2021 The patient was seen and examined in medical floor He has been much better today He discussed in detail what happened to him before coming to the hospital He seemed quite rational in his thought and behavior 05/18/2021 The patient was seen and examined in medical floor Even before restarting conversation with him he mentioned that he has dementia and is not a good day for him to talk The exam section is from 05/17/2021 05/19/2021 The patient was seen and examined in medical floor He has been stable today He has been talking rationally today and has had a good conversation with me Review of Systems Review of Systems: All systems reviewed and are unremarkable except as noted below Neurologic: + generalized weakness Physical Exam Physical Exam: Sitting on a chair without any acute distress Constitutional: well developed and well nourished; not ill appearing Eyes: PERRL, conjunctivae normal, anicteric sclerae ENMT: external ear and nose normal, oropharynx normal Neck: trachea midline, no thyromegaly Respiratory: no respiratory distress Auscultation: lungs clear to auscultation bilaterally Cardiovascular: Rate/Rhythm: regular rate and regular rhythm Heart Sounds: no murmur Extremities: no edema Gastrointestinal (Abdomen): Inspection/Auscultation: normal bowel sounds; abdomen not distended Percussion/Palpation: abdomen soft; abdomen nontender Musculoskeletal: Denies any acute arthritis involving any joint Psychiatric: A+Ox3, euthymic affect Lymphatic: no cervical or axillary lymphadenopathy Results & Data Results & Data ([facility]) Vital Signs (Past 12 Hours) Vital Signs Temp Pulse Pulse Resp BP Pulse Ox 05/19/21 15:27 36.4 C L 62 20 147/82 H 94 05/19/21 07:40 36.7 C 62 16 158/88 H 97 (1) Dementia Dementia behavioral disturbance: with behavioral disturbance Dementia type: unspecified type Qualified Code(s): 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
[2021-05-20] MEDS: ACETAMINOPHEN 325 MG TAB PO PRN (00:06)
[2021-05-20] MEDS: APIXABAN 5 MG TABLET PO SCH ×2 (09:17→20:53)
[2021-05-20] MEDS: FOLIC ACID 1 MG TAB PO SCH (09:18)
[2021-05-20] MEDS: amLODIPine BESYLATE 5 MG TAB PO SCH (09:18)
[2021-05-20] MEDS: THIAMINE HCL 100 MG TAB PO SCH (09:18)
[2021-05-20] MEDS: MULTIVITAMIN TAB PO SCH (09:19)
[2021-05-20] MEDS: ISOSORBIDE MONO EXTENDED REL 30 MG TABCR PO SCH (09:19)
--- NOTE | 2021-05-20 15:22 | Hospitalist Progress Note ---
Date of Service May 20, 2021 Assessment & Plan (1) Dementia: Was brought into ER following an argument with the at home and initially thought to have 302 admission 302 petition was dropped as the patient improved subsequently Appreciate psychiatric input and recommendation Alert and oriented, memory is intact from the events of last night and overall. He appears to be very functional. Not on medication at this time. Was recently prescribed mirtazapine 7.5 nightly in April 2021 by his PCP, questionable if he has started this. will not start Mirtazapine as Psychiatrist did not recommended any meds Remains stable without any acute delirium Awaiting to be placed Will be transferred out of the hospital on Saturday Remains stable (2) Noncompliance with medication regimen: Reports recent noncompliance with medications. Has been taking his medications regularly (3) Alcohol use: Patient was not intoxicated on arrival to the ER, he is a self-described alcoholic. Reports avoiding alcohol for the last couple of weeks. At the age of 89, unsure how helpful rehabilitation will be at this point, however this is an option. For now, there are no withdrawal symptoms but will continue to monitor. 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 Medication regimen includes aspirin at this time. Patient was notably taken off of atenolol, losartan, HCTZ back in January when he reported noncompliance with this. His PCP is aware of noncompliance. Patient has no chest pain and appears stable at this time. Remains stable without any symptoms (5) Chronic atrial fibrillation: Recently seen by PCP. Strongly advised to stay on meds including anticoagulant. Currently taking aspirin, Eliquis. Not on other rate or rhythm control medications. No acute cardiac symptoms (6) Hypertension: Patient has stopped losartan HCTZ earlier this year and is on diet control only. Continue low-salt diet. Will start Amlodipine 2.5 Mg daily Blood pressure is high likely due to anxiety Continue current medications (7) DVT prophylaxis: Apixaban Full code Disposition -considering placement into [facility]. For now awaiting a receiving facility for this elderly man with dementia. Admission and Anticipated Discharge Date Admission Date: May 12, 2021 Subjective 05/16/2021 The patient was seen and examined in medical floor He was admitted following an argument with his at home but the 302 criteria has been dropped He denies any symptoms as of today and has been feeling a lot better He has been waiting to be placed 05/17/2021 The patient was seen and examined in medical floor He has been much better today He discussed in detail what happened to him before coming to the hospital He seemed quite rational in his thought and behavior 05/18/2021 The patient was seen and examined in medical floor Even before restarting conversation with him he mentioned that he has dementia and is not a good day for him to talk The exam section is from 05/17/2021 05/19/2021 The patient was seen and examined in medical floor He has been stable today He has been talking rationally today and has had a good conversation with me 05/20/2021 The patient was seen and examined in medical floor He remains stable medically and denies any symptoms He is anxious that he will need to go to a facility on Saturday Review of Systems Review of Systems: All systems reviewed and are unremarkable except as noted below Physical Exam Physical Exam: Sitting on a chair without any acute distress Constitutional: well developed and well nourished; not ill appearing Eyes: PERRL, conjunctivae normal, anicteric sclerae ENMT: external ear and nose normal, oropharynx normal Neck: trachea midline, no thyromegaly Respiratory: no respiratory distress Auscultation: lungs clear to auscu ltation bilaterally Cardiovascular: Rate/Rhythm: regular rate and regular rhythm Heart Sounds: no murmur Extremities: no edema Gastrointestinal (Abdomen): Inspection/Auscultation: normal bowel sounds; abdomen not distended Percussion/Palpation: abdomen soft; abdomen nontender Psychiatric: A+Ox3, euthymic affect Lymphatic: no cervical or axillary lymphadenopathy Results & Data Results & Data ([facility]) Vital Signs (Past 12 Hours) Vital Signs Temp Pulse Resp BP Pulse Ox 05/20/21 07:45 36.4 C L 64 20 173/101 H 95 (1) Dementia Dementia behavioral disturbance: with behavioral disturbance Dementia type: unspecified type Qualified Code(s): 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
[2021-05-20] MEDS ORDERED: LORazepam 0.5 MG TAB PO STA (23:37)
[2021-05-21 06:02] LABS: Basophils # (auto) 0.02 K/uL (0-0.2); Basophils % (auto) 0.3 %; Eosinophils # (auto) 0.15 K/uL (0-0.5); Eosinophils % (auto) 2.5 %; Hematocrit (blood only) 46.2 % (42-52); Hemoglobin 15.8 g/dL (14.0-18.0); Immature Granulocytes # (auto) 0.04 K/uL (0.00-0.02); Immature Granulocytes % (auto) 0.7 %; Lymphocytes # (auto) 1.98 K/uL (1.2-3.4); Lymphocytes % (auto) 32.4 %; Mean Corpuscular Hemoglobin 31.9 pg (25-34); Mean Corpuscular Hgb Conc 34.2 g/dL (32-36); Mean Corpuscular Volume 93.1 fL (80-100); Monocytes # (auto) 0.45 K/uL (0.11-0.59); Monocytes % (auto) 7.4 %; Neutrophils # (auto) 3.48 K/uL (1.4-6.5); Neutrophils % (auto) 56.7 %; Platelet Count 227 K/uL (130-400); RDW Coefficient of Variation 13.3 % (11.5-14.5); RDW Standard Deviation 45.1 fL (36.4-46.3); Red Blood Count 4.96 M/uL (4.7-6.1); White Blood Count 6.12 K/uL (4.8-10.8)
[2021-05-21 06:34] LABS: BUN Creatinine Ratio 21.8 (10-20); Calcium 9.1 mg/dl (8.5-10.1); Creatinine Clr Calc Pharmacy 53.2 ml/min; Est GFR (African American) 89.5 ml/min; Est GFR (Non-African American) 77.3 ml/min; Potassium 3.9 mmol/L (3.5-5.1)
[2021-05-21] MEDS: APIXABAN 5 MG TABLET PO SCH ×2 (07:45→21:07)
[2021-05-21] MEDS: FOLIC ACID 1 MG TAB PO SCH (07:45)
[2021-05-21] MEDS: ISOSORBIDE MONO EXTENDED REL 30 MG TABCR PO SCH (07:45)
[2021-05-21] MEDS: THIAMINE HCL 100 MG TAB PO SCH (07:46)
[2021-05-21] MEDS: MULTIVITAMIN TAB PO SCH (07:46)
[2021-05-21] MEDS: amLODIPine BESYLATE 5 MG TAB PO SCH (07:46)
--- NOTE | 2021-05-21 13:32 | Hospitalist Progress Note ---
Date of Service May 21, 2021 Assessment & Plan (1) Dementia: Was brought into ER following an argument with the at home and initially thought to have 302 admission 302 petition was dropped as the patient improved subsequently Appreciate psychiatric input and recommendation Alert and oriented, memory is intact from the events of last night and overall. He appears to be very functional. Not on medication at this time. Was recently prescribed mirtazapine 7.5 nightly in April 2021 by his PCP, questionable if he has started this. will not start Mirtazapine as Psychiatrist did not recommended any meds Remains stable without any acute delirium Remains stable to be transferred on Saturday (2) Noncompliance with medication regimen: Reports recent noncompliance with medications. Has been taking his medications regularly (3) Alcohol use: Patient was not intoxicated on arrival to the ER, he is a self-described alcoholic. Reports avoiding alcohol for the last couple of weeks. At the age of 89, unsure how helpful rehabilitation will be at this point, however this is an option. For now, there are no withdrawal symptoms but will continue to monitor. 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 Medication regimen includes aspirin at this time. Patient was notably taken off of atenolol, losartan, HCTZ back in January when he reported noncompliance with this. His PCP is aware of noncompliance. Patient has no chest pain and appears stable at this time. Remains stable without any symptoms (5) Chronic atrial fibrillation: Recently seen by PCP. Strongly advised to stay on meds including anticoagulant. Currently taking aspirin, Eliquis. Not on other rate or rhythm control medications. No acute cardiac symptoms (6) Hypertension: Patient has stopped losartan HCTZ earlier this year and is on diet control only. Continue low-salt diet. Will start Amlodipine 2.5 Mg daily Blood pressure is high likely due to anxiety Continue current medications Blood pressure remains stable (7) DVT prophylaxis: Apixaban Full code Disposition -considering placement into [facility]. For now awaiting a receiving facility for this elderly man with dementia. Discharge tomorrow Admission and Anticipated Discharge Date Admission Date: May 12, 2021 Subjective 05/16/2021 The patient was seen and examined in medical floor He was admitted following an argument with his at home but the 302 criteria has been dropped He denies any symptoms as of today and has been feeling a lot better He has been waiting to be placed 05/17/2021 The patient was seen and examined in medical floor He has been much better today He discussed in detail what happened to him before coming to the hospital He seemed quite rational in his thought and behavior 05/18/2021 The patient was seen and examined in medical floor Even before restarting conversation with him he mentioned that he has dementia and is not a good day for him to talk The exam section is from 05/17/2021 05/19/2021 The patient was seen and examined in medical floor He has been stable today He has been talking rationally today and has had a good conversation with me 05/20/2021 The patient was seen and examined in medical floor He remains stable medically and denies any symptoms He is anxious that he will need to go to a facility on Saturday05/21/2021 The patient was seen and examined in medical floor He has been stable and waiting to go to [facility] on Saturday Review of Systems Review of Systems: All systems reviewed and are unremarkable except as noted below Neurologic: + generalized weakness Physical Exam Physical Exam: Sitting on a chair without any acute distress Constitutional: well developed and well nourished; not ill appearing Eyes: PERRL, conjunctivae normal, anicteric sclerae ENMT: external ear and nose normal, oropharynx normal Neck: trachea midline, no thyromegaly Respiratory: no respiratory distress Auscultation: lungs clear to auscultation bilaterally Cardiovascular: Rate/Rhythm: regular rate and regular rhythm Heart Sounds: no murmur Extremities: no edema Gastrointestinal (Abdomen): Inspection/Auscultation: normal bowel sounds; abdomen not distended Percussion/Palpation: abdomen soft; abdomen nontender Musculoskeletal: Denies any arthritis involving any joint Neurologic: Alert, awake and oriented x3. Occasionally confused. No focal neuro deficit Psychiatric: A+Ox3, euthymic affect Lymphatic: no cervical or axillary lymphadenopathy Results & Data Results & Data ([facility]) Vital Signs (Past 12 Hours) Vital Signs Temp Pulse Resp BP BP Pulse Ox 05/21/21 08:50 76 159/98 H 05/21/21 07:32 36.4 C L 73 16 174/95 H 97 Laboratory Results Short CBC 05/21/21 Range/Units 05:44 WBC 6.12 (4.8-10.8) K/uL Hgb 15.8 (14.0-18.0) g/dL Hct 46.2 (42-52) % Plt Count 227 (130-400) K/uL BMP 05/21/21 05:44 Sodium 139 Potassium 3.9 Chloride 106 Carbon Dioxide 31 BUN 19 H Creatinine 0.85 Glucose 101 H Calcium 9.1 Medications Administered Current Inpatient Medications Acetaminophen (Acetaminophen 325 Mg Tab) 650 mg PO Q4H PRN PRN Reason: Pain or Fever Stop: 06/11/21 21:22 Last Admin: 05/20/21 00:06 Dose: 650 mg Documented by: Amlodipine Besylate (Amlodipine Besylate 5 Mg Tab) 2.5 mg PO [facility] Stop: 06/15/21 14:29 Last Admin: 05/21/21 07:46 Dose: 2.5 mg Documented by: Apixaban (Apixaban 5 Mg Tablet) 5 mg PO BID [facility] Stop: 06/11/21 21:59 Last Admin: 05/21/21 07:45 Dose: 5 mg Documented by: Betamethasone/Clotrimazole (Clotrimazole/Betamethasone Cr 15 Gm Tube) 1 appln EXT PRN PRN PRN Reason: PRN Stop: 06/11/21 21:44 Folic Acid (Folic Acid 1 Mg Tab) 1 mg PO [facility] Stop: 06/13/21 09:29 Last Admin: 05/21/21 07:45 Dose: 1 mg Documented by: Lorazepam (Ativan) 1 mg in 2 mls @ 2 mls/min IV UD PRN; Protocol PRN Reason: EtOH Withdrawl AWSS Score 6,7 Stop: 06/11/21 21:22 Lorazepam (Ativan) 2 mg in 4 mls @ 4 mls/min IV UD PRN; Protocol PRN Reason: EtOH Withdrawl AWSS Score 8,9 Stop: 06/11/21 21:22 Lorazepam (Ativan) 3 mg in 6 mls @ 4 mls/min IV ONCE PRN; Protocol PRN Reason: EtOH Withdrawl AWSS Score >=10 Stop: 06/11/21 21:22 Isosorbide Mononitrate (Isosorbide [place] Extended Rel 30 Mg Tabcr) 30 mg PO QAM [facility] Stop: 06/13/21 09:29 Last Admin: 05/21/21 07:45 Dose: 30 mg Documented by: Multivitamins (Multivitamin Tab) 1 tab PO QAM [facility] Stop: 06/12/21 08:59 Last Admin: 05/21/21 07:46 Dose: 1 tab Documented by: Nitroglycerin (Nitroglycerin Sl 0.4 Mg/Tab Tab) 0.4 mg SL UD PRN PRN Reason: Chest Pain Stop: 06/11/21 21:22 Olanzapine (Olanzapine 10 Mg/2.1 Ml Sdv) 2.5 mg IM Q4H PRN PRN Reason: Agitation Stop: 06/11/21 21:22 Ondansetron HCl (Ondansetron Inj 2 Mg/Ml 2 Ml Vial) 4 mg IV Q6H PRN PRN Reason: Nausea Stop: 06/11/21 21:22 Polyethylene Glycol (Polyethylene (Miralax) 17 Gm Pack) 17 gm PO DAILY PRN PRN Reason: Constipation Stop: 06/11/21 21:22 Thiamine HCl (Thiamine Hcl 100 Mg Tab) 100 mg PO QAM [facility] Stop: 06/13/21 09:29 Last Admin: 05/21/21 07:46 Dose: 100 mg Documented by: (1) Dementia Dementia behavioral disturbance: with behavioral disturbance Dementia type: unspecified type Qualified Code(s): 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
[2021-05-21] MEDS ORDERED: LORazepam 0.5 MG TAB PO STA (21:29)
[2021-05-22] MEDS: MULTIVITAMIN TAB PO SCH (08:20)
[2021-05-22] MEDS: FOLIC ACID 1 MG TAB PO SCH (08:20)
[2021-05-22] MEDS: APIXABAN 5 MG TABLET PO SCH (08:20)
[2021-05-22] MEDS: THIAMINE HCL 100 MG TAB PO SCH (08:21)
[2021-05-22] MEDS: amLODIPine BESYLATE 5 MG TAB PO SCH (08:21)
[2021-05-22] MEDS: ISOSORBIDE MONO EXTENDED REL 30 MG TABCR PO SCH (08:22)
--- NOTE | 2021-05-22 09:26 | Hospitalist Progress Note ---
Date of Service May 22, 2021 Assessment & Plan (1) Dementia: Was brought into ER following an argument with the at home and initially thought to have 302 admission 302 petition was dropped as the patient improved subsequently Appreciate psychiatric input and recommendation Alert and oriented, memory is intact from the events of last night and overall. He appears to be very functional. Not on medication at this time. Was recently prescribed mirtazapine 7.5 nightly in April 2021 by his PCP, questionable if he has started this. will not start Mirtazapine as Psychiatrist did not recommended any meds Remains stable without any acute delirium Will be transferred to [facility] this morning (2) Noncompliance with medication regimen: Reports recent noncompliance with medications. Has been taking his medications regularly (3) Alcohol use: Patient was not intoxicated on arrival to the ER, he is a self-described alcoholic. Reports avoiding alcohol for the last couple of weeks. At the age of 89, unsure how helpful rehabilitation will be at this point, however this is an option. For now, there are no withdrawal symptoms but will continue to monitor. 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 Medication regimen includes aspirin at this time. Patient was notably taken off of atenolol, losartan, HCTZ back in January when he reported noncompliance with this. His PCP is aware of noncompliance. Patient has no chest pain and appears stable at this time. Denies any acute symptoms (5) Chronic atrial fibrillation: Recently seen by PCP. Strongly advised to stay on meds including anticoagulant. Currently taking aspirin, Eliquis. Not on other rate or rhythm control medications. Heart rate is controlled (6) Hypertension: Patient has stopped losartan HCTZ earlier this year and is on diet control only. Continue low-salt diet. Will start Amlodipine 2.5 Mg daily Blood pressure is high likely due to anxiety Continue current medications Blood pressure remains stable (7) DVT prophylaxis: Apixaban Full code Disposition -considering placement into [facility]. For now awaiting a receiving facility for this elderly man with dementia. Discharged to [facility] this morning Admission and Anticipated Discharge Date Admission Date: May 12, 2021 Subjective 05/16/2021 The patient was seen and examined in medical floor He was admitted following an argument with his at home but the 302 criteria has been dropped He denies any symptoms as of today and has been feeling a lot better He has been waiting to be placed 05/17/2021 The patient was seen and examined in medical floor He has been much better today He discussed in detail what happened to him before coming to the hospital He seemed quite rational in his thought and behavior 05/18/2021 The patient was seen and examined in medical floor Even before restarting conversation with him he mentioned that he has dementia and is not a good day for him to talk The exam section is from 05/17/2021 05/19/2021 The patient was seen and examined in medical floor He has been stable today He has been talking rationally today and has had a good conversation with me 05/20/2021 The patient was seen and examined in medical floor He remains stable medically and denies any symptoms He is anxious that he will need to go to a facility on Saturday05/21/2021 The patient was seen and examined in medical floor He has been stable and waiting to go to personal-assisted on Saturday05/22/2021 The patient was seen and examined in medical floor He denies any symptoms and has been feeling much better He will be transferred to [facility] this morning Review of Systems Review of Systems: All systems reviewed and are unremarkable except as noted below Neurologic: + generalized weakness Physical Exam Physical Exam: Sitting on a chair without any acute distress Constitutional: well developed and well nourished; not ill appearing Eyes: PERRL, conjunctivae normal, anicteric sclerae ENMT: external ear and nose normal, oropharynx normal Neck: trachea midline, no thyromegaly Respiratory: no respiratory distress Auscultation: lungs clear to auscultation bilaterally Cardiovascular: Rate/Rhythm: regular rate and regular rhythm Heart Sounds: no murmur Extremities: no edema Gastrointestinal (Abdomen): Inspection/Auscultation: normal bowel sounds; abdomen not distended Percussion/Palpation: abdomen soft; abdomen nontender Musculoskeletal: No acute arthritis involving any joint Neurologic: Alert, awake and oriented. pleasantly confused. Psychiatric: A+Ox3, euthymic affect Lymphatic: no cervical or axillary lymphadenopathy Results & Data Results & Data ([facility]) Vital Signs (Past 12 Hours) Vital Signs Temp Pulse Pulse Resp BP BP Pulse Ox 05/22/21 07:34 36.3 C L 63 16 163/93 H 94 05/21/21 22:30 36.7 C 60 16 148/79 H 95 Medications Administered Current Inpatient Medications Acetaminophen (Acetaminophen 325 Mg Tab) 650 mg PO Q4H PRN PRN Reason: Pain or Fever Stop: 06/11/21 21:22 Last Admin: 05/20/21 00:06 Dose: 650 mg Documented by: Amlodipine Besylate (Amlodipine Besylate 5 Mg Tab) 2.5 mg PO [facility] Stop: 06/15/21 14:29 Last Admin: 05/22/21 08:21 Dose: 2.5 mg Documented by: Apixaban (Apixaban 5 Mg Tablet) 5 mg PO BID [facility] Stop: 06/11/21 21:59 Last Admin: 05/22/21 08:20 Dose: 5 mg Documented by: Betamethasone/Clotrimazole (Clotrimazole/Betamethasone Cr 15 Gm Tube) 1 appln EXT PRN PRN PRN Reason: PRN Stop: 06/11/21 21:44 Folic Acid (Folic Acid 1 Mg Tab) 1 mg PO [facility] Stop: 06/13/21 09:29 Last Admin: 05/22/21 08:20 Dose: 1 mg Documented by: Lorazepam (Ativan) 1 mg in 2 mls @ 2 mls/min IV UD PRN; Protocol PRN Reason: EtOH Withdrawl AWSS Score 6,7 Stop: 06/11/21 21:22 Lorazepam (Ativan) 2 mg in 4 mls @ 4 mls/min IV UD PRN; Protocol PRN Reason: EtOH Withdrawl AWSS Score 8,9 Stop: 06/11/21 21:22 Lorazepam (Ativan) 3 mg in 6 mls @ 4 mls/min IV ONCE PRN; Protocol PRN Reason: EtOH Withdrawl AWSS Score >=10 Stop: 06/11/21 21:22 Isosorbide Mononitrate (Isosorbide [place] Extended Rel 30 Mg Tabcr) 30 mg PO [facility] Stop: 06/13/21 09:29 Last Admin: 05/22/21 08:22 Dose: 30 mg Documented by: Multivitamins (Multivitamin Tab) 1 tab PO [facility] Stop: 06/12/21 08:59 Last Admin: 05/22/21 08:20 Dose: 1 tab Documented by: Nitroglycerin (Nitroglycerin Sl 0.4 Mg/Tab Tab) 0.4 mg SL UD PRN PRN Reason: Chest Pain Stop: 06/11/21 21:22 Olanzapine (Olanzapine 10 Mg/2.1 Ml Sdv) 2.5 mg IM Q4H PRN PRN Reason: Agitation Stop: 06/11/21 21:22 Ondansetron HCl (Ondansetron Inj 2 Mg/Ml 2 Ml Vial) 4 mg IV Q6H PRN PRN Reason: Nausea Stop: 06/11/21 21:22 Polyethylene Glycol (Polyethylene (Miralax) 17 Gm Pack) 17 gm PO DAILY PRN PRN Reason: Constipation Stop: 06/11/21 21:22 Thiamine HCl (Thiamine Hcl 100 Mg Tab) 100 mg PO QAM [facility] Stop: 06/13/21 09:29 Last Admin: 05/22/21 08:21 Dose: 100 mg Documented by: (1) Dementia Dementia behavioral disturbance: with behavioral disturbance Dementia type: unspecified type Qualified Code(s): 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
--- NOTE | 2021-05-22 16:57 | Discharge Summary ---
Date of Service May 22, 2021 Admission HPI Per Admitting Provider DICTATED BY: Inocente Boyd MD DATE OF ADMISSION: 05/12/2021 CHIEF COMPLAINT: Some paranoid behavior at home, noncompliant with medication, dementia, alcohol use. HISTORY OF PRESENT ILLNESS: This is an 89-year-old male with past medical history significant for diabetes, hyperlipidemia, third-degree heart block, status post pacemaker, chronic atrial fibrillation, hypertension, GERD, hard of hearing, dementia, iron-deficiency anemia, history of CABG. The patient lives at home with his . Seems to be he is having noncompliance with medications, some paranoia and his mental status was waxing and waning at home and he has a history of dementia. He is not seeing his primary care physician. He had a very bad argument with his significant other and police were called and he was 302ed and brought to the Emergency Room. In the Emergency Room, the patient is alert and awake, and after multiple phone calls to [employer] and interviewing the police, the ER physician thought he was not required 302 and it was upheld, and the plan was to send him to a personal [facility], but they could not place him, so we are called for admission. The patient is resting comfortably, very hard of hearing, I have to write on the paper. The patient denies any pain. Nothing is bothering him except that he wants to go. No nausea, no cough, no fevers, no diarrhea or constipation. Appetite is okay. No difficulty swallowing. Vision is not that great. No sore throat. Urinating okay. Walking okay with cane. He states he is drinking alcohol at home about 2 bottles, looks like 2 bourbons a day. He is saying that he is taking his meds, but there seems to be noncompliance with medication as per records. When asked apparently anything he wanted to tell me, he said he wanted me to go. When I asked to examine him, he said that I need to go and when I requested him to be examined, he just walked me to the door and let me go out. Admission Exam Per Admitting Provider The patient refused to be examined on admission Principal Diagnosis Dementia without any acute delirium, stable CAD, hypertension, controlled atrial fibrillation Discharge Exam Constitutional well developed and well nourished; not ill appearing Eyes PERRL, conjunctivae normal, anicteric sclerae ENMT external ear and nose normal, oropharynx normal Neck trachea midline, no thyromegaly Respiratory no respiratory distress Auscultation: lungs clear to auscultation bilaterally Cardiovascular Rate/Rhythm: regular rate and regular rhythm Heart Sounds: no murmur Extremities: no edema Gastrointestinal (Abdomen) Inspection/Auscultation: normal bowel sounds; abdomen not distended Percussion/Palpation: abdomen soft; abdomen nontender Psychiatric A+Ox3, euthymic affect Lymphatic no cervical or axillary lymphadenopathy Discharge Data Allergies Allergy/AdvReac Type Severity Reaction Status Date / Time MORRIS Inhibitors AdvReac Unknown COUGH Verified 05/12/21 13:51 Consultations 05/12/21 18:17 ED Decision to Admit Stat 05/12/21 21:23 Consult Psychiatry Routine Ordered Studies 05/12/21 11:09 CT head/brain wo con Stat Hospital Course (1) Dementia: Was brought into ER following an argument with the at home and [employer] thought to have 302 admission 302 petition was dropped as the patient improved subsequently Appreciate psychiatric input and recommendation Alert and oriented, memory is intact from the events of last night and overall. He appears to be very functional. Not on medication at this time. Was recently prescribed mirtazapine 7.5 nightly in April 2021 by his PCP, questionable if he has started this. will not start Mirtazapine as Psychiatrist did not recommended any meds Remains stable without any acute delirium Will be transferred to [facility] this morning (2) Noncompliance with medication regimen: Reports recent noncompliance with medications. Has been taking his medications regularly (3) Alcohol use: Patient was not intoxicated on arrival to the ER, he is a self-described alcoholic. Reports avoiding alcohol for the last couple of weeks. At the age of 89, unsure how helpful rehabilitation will be at this point, however this is an option. For now, there are no withdrawal symptoms but will continue to monitor. 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 Medication regimen includes aspirin at this time. Patient was notably taken off of atenolol, losartan, HCTZ back in January when he reported noncompliance with this. His PCP is aware of noncompliance. Patient has no chest pain and appears stable at this time. Denies any acute symptoms (5) Chronic atrial fibrillation: Recently seen by PCP. Strongly advised to stay on meds including anticoagulant. Currently taking aspirin, Eliquis. Not on other rate or rhythm control medications. Heart rate is controlled (6) Hypertension: Patient has stopped losartan HCTZ earlier this year and is on diet control only. Continue low-salt diet. Will start Amlodipine 2.5 Mg daily Blood pressure is high likely due to anxiety Continue current medications Blood pressure remains stable (7) DVT prophylaxis: Apixaban Full code Disposition -considering placement into [facility]. For now awaiting a receiving facility for this elderly man with dementia. Discharged to [facility] this morning Total Time Total Time Spent Total Time Spent (In Minutes): 35 minutes Total Time Includes: Examination of the Patient, Discharge Planning, Medication Reconciliation and Communication With Other Providers Discharge Plan Discharge Items Patient Disposition: Personal [facility] Care Reason For Visit: MENTAL HEALTH EVALUATION Discharge Diagnosis: Dementia without any acute delirium, stable CAD, hypertension, controlled atrial fibrillation Condition on Discharge: Fair Activity: Resume your previous activity Non-emergency contact: Primary Care Provider Call non-emergency contact if: you have any medication questions and your symptoms worsen Follow-up/Referrals: PCP,NO [Physician] - Diet: Regular Addtl Attending Provider Instructions: Please take precautions to avoid falls Please take your medications as advised Pending Studies at Discharge: No Stand-Alone Forms: My [employer], Smoking Cessation Skilled Items Patient informed of condition?: Yes DNR: No Discharge Level of Care: Other Communicable Disease: No Discharge Prognosis: Stable Lines: None Urinary Catheter: No Medications and DC Order Prescriptions: New thiamine HCl (vitamin B1) [Vitamin B-1] 100 mg Tablet 100 mg PO QAM 30 Days Qty: 30 RF: 0 amlodipine [Norvasc] 5 mg Tablet 5 mg PO QAM 30 Days Qty: 30 RF: 0 folic acid 1 mg Tablet 1 mg PO QAM 30 Days Qty: 30 RF: 0 Continued APIXABAN (ELIQUIS) 5 MG tablet 5 mg PO BID Qty: 0 RF: 0 Multivitamin tablet 1 tab PO QAM Qty: 0 RF: 0 polyethylene glycol 3350 17 gram Powder In Packet 17 g DAILY PRN (Reason: Constipation) RF: 0 isosorbide mononitrate 30 mg tablet extended release 24 hr 30 mg PO DAILY RF: 0 Discontinued mirtazapine 7.5 mg tablet 7.5 mg PO HS RF: 0 Discharge Orders: Discharge Order (Routine); Ordered 05/22/21 Ordered By: Christine Talley Admission Data Admit Date/Time: 05/12/21 19:45 Attending Provider: Christine Talley Admit Provider: Inocente Boyd Primary Care Provider: Ian Bello Other Providers: Inocente Boyd ; Dr Tyrel ; Katherine Campos ; Alex Packer ; Sylvia Regalado Other Interventions: Discharge Summary Assessment (RN) Last Done: 05/22/21 10:54
== END 2021-05-22 11:01 | disposition home or self-care (01) | DRG 884 ==
LOC: ED 10:33 → 2N 19:45 → SUATTDRO 19:45 → 2N 21:03 → 3N 05-15 10:31